=== PATIENT | female | born 1945 | race Caucasian/White ===

== ENCOUNTER 2017-08-31 17:37 | Inpatient (IN) | payer MEDICARE, OTHER ==
[~2017-08-31] VITALS: Ht 157.5 cm; Wt 49.6 kg
[2017-08-31] VITALS (7 sets, daily range): BP systolic 115–129; BP diastolic 45–60; PULSE 76–89; RESP 15–18; TEMP 97.7–97.8; O2SAT 97–100
--- NOTE | 2017-08-31 18:08 | RADRPT ---
EXAM DATE/TIME: 08/31/2017 17:58 [facility] COMPARISON: No previous studies available for comparison. INDICATIONS : Syncope. MEDICAL HISTORY : None. SURGICAL HISTORY : None. ENCOUNTER: Initial ACUITY: 1 day PAIN SCORE: Non-responsive. LOCATION: Bilateral chest FINDINGS: Portable AP view of the chest demonstrates a normal-sized cardiac silhouette. Left chest wall cardiac pacing device is present. EKG lines overlie the patient. Lungs are mildly underinflated. No pleural effusion, airspace consolidation, or pneumothorax is identified. The bones and soft tissues demonstra te no acute finding. CONCLUSION: No acute cardiopulmonary abnormality is identified. Duy Armando MD on August 31, 2017 at 18:06 Board Certified Radiologist. This report was verified electronically.
[2017-08-31 18:10] LABS: AUTOMATED NEUTROPHIL # 4.7 TH/MM3 (1.8-7.7); BASOPHIL % 0.5 % (0.0-2.0); EOSINOPHIL % 0.2 % (0.0-4.0); HEMOGLOBIN 14.1 GM/DL (11.6-15.3); LYMPHOCYTE # 2.3 TH/MM3 (1.0-4.8); MEAN CELL VOLUME 80.8 FL (80.0-100.0); MEAN CORPUSCULAR HEMOGLOBIN 26.6 PG (27.0-34.0); MEAN CORPUSCULAR HGB CONC 32.9 % (32.0-36.0); MEAN PLATELET VOLUME 7.6 FL (7.0-11.0); MONO % 5.5 % (0.0-8.0); MONOCYTE # 0.4 TH/MM3 (0-0.9); NEUT % 62.8 % (16.0-70.0); PLATELET COUNT 259 TH/MM3 (150-450); RED BLOOD COUNT 5.32 MIL/MM3 (4.00-5.30); WHITE BLOOD COUNT 7.6 TH/MM3 (4.0-11.0)
[2017-08-31 18:17] LABS: PROTHROMBIN TIME - PATIENT 10.1 SEC (9.8-11.6)
[2017-08-31 18:27] LABS: ALT (GPT) 14 U/L (10-53)
[2017-08-31] MEDS ORDERED: SINE25TA PO (18:27)
[2017-08-31] MEDS ORDERED: ALLO100T PO (18:27)
[2017-08-31] MEDS ORDERED: APIX5TAB PO (18:27)
[2017-08-31] MEDS ORDERED: ASPI81CH6 PO (18:27)
[2017-08-31] MEDS ORDERED: CALC12502 PO (18:27)
[2017-08-31] MEDS ORDERED: VITA500T4 PO (18:27)
[2017-08-31] MEDS ORDERED: MEGE40SU PO (18:27)
[2017-08-31] MEDS ORDERED: ARIC10TA9 PO (18:27)
[2017-08-31] MEDS ORDERED: POTA10TA2 PO (18:27)
[2017-08-31] MEDS ORDERED: METH2.5T PO (18:27)
[2017-08-31] MEDS ORDERED: VITA100018 PO (18:27)
[2017-08-31] MEDS ORDERED: TOPR25TA PO (18:27)
[2017-08-31] MEDS ORDERED: KAOP262S PO (18:27)
[2017-08-31] MEDS ORDERED: ATOR10TA15 PO (18:27)
[2017-08-31] MEDS ORDERED: LACT237L26 PO (18:27)
[2017-08-31] MEDS ORDERED: FLUT1INH INH (18:27)
[2017-08-31] MEDS ORDERED: FURO1TAB60 PO (18:27)
[2017-08-31] MEDS ORDERED: FOLI1TAB6 PO (18:27)
[2017-08-31] MEDS ORDERED: MILKSUS PO (18:27)
[2017-08-31] MEDS ORDERED: VENL75TA PO (18:27)
[2017-08-31] MEDS ORDERED: TYLE325T PO (18:27)
[2017-08-31] MEDS ORDERED: LANO0.12 PO (18:27)
[2017-08-31] MEDS ORDERED: SODI1TAB PO (18:27)
[2017-08-31] MEDS ORDERED: MIRA3350 PO (18:27)
[2017-08-31] MEDS ORDERED: LEVO25TA4 PO (18:27)
--- NOTE | 2017-08-31 18:27 | RADRPT ---
EXAM DATE/TIME: 08/31/2017 18:11 [facility] COMPARISON: No previous studies available for comparison. INDICATIONS : Altered mental status. RADIATION DOSE: 56.35 CTDIvol (mGy) MEDICAL HISTORY : Non-responsive. SURGICAL HISTORY : Non-responsive. ENCOUNTER: Initial ACUITY: 1 day PAIN SCALE: Non-responsive LOCATION: Bilateral head TECHNIQUE: Multiple contiguous axial images were obtained of the head. Using automated exposure control and adj ustment of the mA and/or kV according to patient size, radiation dose was kept as low as reasonably a chievable to obtain optimal diagnostic quality images. DICOM format image data is available electro nically for review and comparison. FINDINGS: CEREBRUM: Moderate diffuse cerebral atrophy. Prominent periventricular white matter hypodensities. Probable sma ll lacunar infarct in the left basal ganglia. Left The ventricles are normal for degree of atrophy. No evidence of midline shift, mass lesion, hemorrhage or acute infarction. No extra-axial fluid jordan ections are seen. POSTERIOR FOSSA: The cerebellum and brainstem are intact. The 4th ventricle is midline. The cerebellopontine angle i s unremarkable. EXTRACRANIAL: The visualized portion of the orbits is intact. SKULL: The calvaria is intact. No evidence of skull fracture. CONCLUSION: 1. Senescent changes with prominent periventricular small vessel ischemic white matter demyelination. 2. Probable old small left basal ganglia lacunar infarct. 3. No acute intracranial abnormality. Kurt Ramirez MD on August 31, 2017 at 18:24 Board Certified Radiologist. This report was verified electronically.
[2017-08-31 18:40] LABS: ALKALINE PHOSPHATASE 79 U/L (45-117); AST (GOT) 35 U/L (15-37); BICARBONATE 24.9 MEQ/L (21.0-32.0); BLOOD UREA NITROGEN 24 MG/DL (7-18); CALCIUM 8.3 MG/DL (8.5-10.1); CHLORIDE 103 MEQ/L (98-107); CREATININE 1.18 MG/DL (0.50-1.00); GLOMERULAR FILTRATION RATE 45 ML/MIN (>89); GLUCOSE,RANDOM 212 MG/DL (74-106); SODIUM (NA) 135 MEQ/L (136-145); TOTAL BILIRUBIN ADULT 0.3 MG/DL (0.2-1.0); TOTAL PROTEIN 6.3 GM/DL (6.4-8.2); TROPONIN I 0.55 NG/ML (0.02-0.05)
--- NOTE | 2017-08-31 18:51 | PD ---
HPI Chief Complaint: Neuro Symptoms/ Deficits Time Seen by Provider: 17:46 Travel History International Travel<30 days: No Contact w/Intl Traveler<30days: No Traveled to known affect area: No History of Present Illness HPI 72-year-old arrives by EMS. She was recently discharged from an outside hospital 2 days prior. Her family members and friends noted her speech is abnormal and that she is much less active than normal. At baseline she is awake alert interactive. She is evidently loud and gregarious with her friends. No asymmetry of the face has been observed or weakness in the upper extremities. She was discharged with a diagnosis of UTI. Outside hospital imaging revealed a normal head CT. Severity moderate. Modifying factor. Patient has a history of atrial fibrillation coronary artery disease gastric bypass hysterectomy and hypertension. PFSH Past Medical History Atrial Fibrillation: Yes Cardiac Catheterization: Yes Cardiovascular Problems: Yes (HTN) Diabetes: Yes (NEW ONSET ) Patient Takes Glucophage: No Diminished Hearing: No Hypertension: Yes Immunizations Current: Yes Tetanus Vaccination: Unknown Influenza Vaccination: No ?: Not Menopausal: Yes Past Surgical History Abdominal Surgery: Yes (GASTRIC BYPASS ) Appendectomy: Yes Cardiac Surgery: Yes (PACEMAKER PLACMENT ) Cholecystectomy: Yes Coronary Stent: Yes (X1) Gynecologic Surgery: Yes (HYSTERECTOMY ) Hysterectomy: Yes Social History Alcohol Use: No Tobacco Use: No Substance Use: No Allergies-Medications (Allergen,Severity, Reaction): Coded Allergies: morphine (Verified Allergy, Unknown, 08/31/17) Reported Meds & Prescriptions Reported Meds & Active Scripts Active Reported Tylenol (Acetaminophen) 325 Mg Tab 650 Mg PO Q6H PRN Milk of Magnesia Liq (Magnesium Hydroxide) 400 Mg/5 Ml Susp 30 Ml PO DAILY PRN Miralax Powder (Polyethylene Glycol 3350 Powder) 17 Gm Powd 17 Gm PO DAILY PRN Mix and dissolve one measuring cap-ful (17 grams) in water or juice. Kaopectate Liq (Bismuth Subsalicylate) 262 Mg/15 Ml Susp 30 Ml PO BID PRN Do not exceed 2 doses in 24 hours. Atorvastatin (Atorvastatin Calcium) 10 Mg Tab 10 Mg PO HS Aricept (Donepezil HCl) 10 Mg Tablet 10 Mg PO HS Aspirin Low Dose (Aspirin) 81 Mg Chew 81 Mg PO DAILY Take with dinner Eliquis (Apixaban) 5 Mg Tab 5 Mg PO BID Toprol XL (Metoprolol Succinate) 25 Mg Tab 25 Mg PO BID Hold for B/P less than 90/60 or HR less than 60 Potassium Chloride ER (Potassium Chloride) 10 Meq Tab 10 Meq PO BID Calcium (Oyster Shell) 500 Mg Calcium (1250 Mg) Tab 500 Mg PO BID Boost (Lactose-Reduced Food) 0.04 Gram-1 Kcal/Ml Liquid 1 Can PO BID Lasix (Furosemide) 40 Mg Tab 40 Mg PO BID Lanoxin (Digoxin) 125 Mcg Tablet 125 Mcg PO DAILY Hold for HR <60 & call MD after 3rd day of holding Vitamin D3 (Cholecalciferol) 1,000 Unit Tab 2,000 Units PO DAILY Effexor (Venlafaxine HCl) 75 Mg Tab 75 Mg PO DAILY Breo Ellipta Inh (Fluticasone/Vilanterol) 100-25 Mcg/Act Inh 1 Puff INH DAILY Use daily at the same time. Allopurinol 100 Mg Tab 100 Mg PO DAILY Vitamin B-12 (Cyanocobalamin) 500 Mcg Tab 1,000 Mcg PO DAILY Megestrol Liq (Megestrol Acetate) 40 Mg/Ml Susp 400 Mg PO DAILY Folic Acid 1 Mg Tablet 1 Mg PO DAILY Methotrexate 2.5 Mg Tab 12.5 Mg PO SATURDAY Sodium Chloride 1 Gram Tab 1 Gm PO DAILY Sinemet (Carbidopa-Levodopa) 25-100 Mg Tab 1 Tab PO TID Levothyroxine (Levothyroxine Sodium) 25 Mcg Tab 25 Mcg PO DAILY Review of Systems Except as stated in HPI: all other systems reviewed are Neg Physical Exam Narrative GENERAL: 72-year-old female pleasant well-nourished well-developed answers questions at the bedside Vital Signs Date Time Temp Pulse Resp B/P (MAP) Pulse Ox O2 Delivery O2 Flow Rate FiO2 18 17:45 97.8 85 15 124/60 (81) 100 218 17:45 96 Nasal Cannula 2.00 SKIN: Warm and dry. HEAD: Atraumatic. Normocephalic. EYES: Pupils equal and round. No scleral icterus. No injection or drainage. ENT: No nasal bleeding or discharge. Mucous membranes pink and moist. NECK: Trachea midline. No JVD. CARDIOVASCULAR: Regular rate and rhythm. RESPIRATORY: No accessory muscle use. Clear to auscultation. Breath sounds equal bilaterally. GASTROINTESTINAL: Abdomen soft, non-tender, nondistended. Hepatic and splenic margins not palpable. MUSCULOSKELETAL: Extremities without clubbing, cyanosis, or edema. No obvious deformities. NEUROLOGICAL: Cranial nerves III through XII are normal on my exam. The speech is comprehensible. Memory grossly preserved. PSYCHIATRIC: Appropriate mood and affect; insight and judgment normal. Data Data Last Documented VS Vital Signs Date Time Temp Pulse Resp B/P (MAP) Pulse Ox O2 Delivery O2 Flow Rate FiO2 08/31/17 18:45 80 16 119/45 (69) 98 Room Air 08/31/17 17:45 97.8 08/31/17 17:45 2.00 Orders Orders Electrocardiogram (08/31/17 17:46) Basic Metabolic Panel (Bmp) (08/31/17 17:46) Comprehensive Metabolic Panel (08/31/17 17:46) Prothrombin Time / Inr (Pt) (08/31/17 17:46) Act Partial Throm Time (Ptt) (08/31/17 17:46) Troponin I (08/31/17 17:46) Thyroid Stimulating Hormone (08/31/17 17:46) Urinalysis - C+S If Indicated (08/31/17 17:46) Chest, Single Ap (08/31/17 17:46) Ct Brain W/O Iv Contrast(Rout) (08/31/17 17:46) Blood Glucose (08/31/17 17:46) Ecg Monitoring (08/31/17 17:46) Iv Access Insert/Monitor (08/31/17 17:46) Oximetry (08/31/17 17:46) Complete Blood Count With Diff (08/31/17 17:55) Admit Order (Ed Use Only) (08/31/17 ) Folding Machine Operator / Telemetry CINDY.Q8H (08/31/17 19:10) Vital Signs (Adult) Q4H (08/31/17 19:10) Activity Bed Rest (08/31/17 19:10) Labs Laboratory Tests Test 08/31/17 17:49 08/31/17 17:50 08/31/17 18:50 Prothrombin Time 10.1 SEC Prothromb Time International Ratio 1.0 RATIO Activated Partial Thromboplast Time 25.3 SEC Blood Urea Nitrogen 24 MG/DL Creatinine 1.18 MG/DL Random Glucose 212 MG/DL Total Protein 6.3 GM/DL Albumin 3.0 GM/DL Calcium Level 8.3 MG/DL Alkaline Phosphatase 79 U/L Aspartate Amino Transf (AST/SGOT) 35 U/L Alanine Aminotransferase (ALT/SGPT) 14 U/L Total Bilirubin 0.3 MG/DL Sodium Level 135 MEQ/L Potassium Level 4.3 MEQ/L Chloride Level 103 MEQ/L Carbon Dioxide Level 24.9 MEQ/L Anion Gap 7 MEQ/L Estimat Glomerular Filtration Rate 45 ML/MIN Troponin I 0.55 NG/ML Thyroid Stimulating Hormone 3rd Gen 2.300 uIU/ML White Blood Count 7.6 TH/MM3 Red Blood Count 5.32 MIL/MM3 Hemoglobin 14.1 GM/DL Hematocrit 43.0 % Mean Corpuscular Volume 80.8 FL Mean Corpuscular Hemoglobin 26.6 PG Mean Corpuscular Hemoglobin Concent 32.9 % Red Cell Distribution Width 23.0 % Platelet Count 259 TH/MM3 Mean Platelet Volume 7.6 FL Neutrophils (%) (Auto) 62.8 % Lymphocytes (%) (Auto) 31.0 % Monocytes (%) (Auto) 5.5 % Eosinophils (%) (Auto) 0.2 % Basophils (%) (Auto) 0.5 % Neutrophils # (Auto) 4.7 TH/MM3 Lymphocytes # (Auto) 2.3 TH/MM3 Monocytes # (Auto) 0.4 TH/MM3 Eosinophils # (Auto) 0.0 TH/MM3 Basophils # (Auto) 0.0 TH/MM3 CBC Comment DIFF FINAL Differential Comment Urine Color YELLOW Urine Turbidity CLEAR Urine pH 5.5 Urine Specific [place] 1.020 Urine Protein NEG mg/dL Urine Glucose (UA) 150 mg/dL Urine Ketones NEG mg/dL Urine Occult Blood NEG Urine Nitrite NEG Urine Bilirubin NEG Urine Urobilinogen LESS THAN 2.0 MG/DL Urine Leukocyte Esterase SMALL Urine RBC 1 /hpf Urine WBC 1 /hpf Urine Bacteria RARE /hpf Urine Hyaline Casts 1 /lpf Microscopic Urinalysis Comment CATH-CULTURE IND MDM Medical Decision Making Medical Screen Exam Complete: Yes Emergency Medical Condition: Yes Medical Record Reviewed: Yes Differential Diagnosis Stroke of hemorrhagic causes, ischemic stroke, Narrative Course CBC & BMP Diagram 08/31/17 17:49 Total Protein 6.3 L, Albumin 3.0 L, Calcium Level 8.3 L, Alkaline Phosphatase 79 , Aspartate Amino Transf (AST/SGOT) 35, Alanine Aminotransferase (ALT/SGPT) 14, Total Bilirubin 0.3 08/31/17 17:50 Troponin 0.55 EKG shows a paced rhythm at a rate of 79 somewhat irregular without acute ischemic injury pattern Patient has no chest pain such that the etiology of her troponin of 0.55 is indeterminate. Patient has CHF and a BMP may further help define the nature of the elevated troponin The case was discussed with Dr Frye Diagnosis Primary Impression: Altered mental status Qualified Codes: R41.82 - Altered mental status, unspecified Additional Impression: Elevated troponin Admitting Information Admitting Physician Requests: Observation Chirag Childers MD Aug 31, 2017 18:51
[2017-08-31 19:10] LABS: BACTERIA, URINE RARE /hpf; BILIRUBIN, URINE NEG (NEG); BLOOD, URINE NEG (NEG); GLUCOSE,URINE 150 mg/dL (NEG); HYALINE CAST, URINE 1 /lpf (RARE); KETONE, URINE NEG (NEG); NITRITE,URINE NEG (NEG); PH, URINE 5.5 (5.0-8.5); URINE COLOR YELLOW (YELLW/STRAW); URINE LEUKOCYTE ESTERASE SMALL (NEG)
[2017-08-31] MEDS ORDERED: SODIUM CHLORIDE 0.9% FLUSH 10 ML FLUSH IV FLUSH PRN ×2 (19:15)
[2017-08-31] MEDS ORDERED: GLUCAGON 1 MG/ML VIAL OTHER PRN (19:15)
[2017-08-31] MEDS ORDERED: DEXTROSE 50% IN WATER 50 ML VIAL(D50) IV PUSH PRN (19:15)
[2017-08-31] MEDS ORDERED: ONDANSETRON HCL 4 MG/2 ML VIAL IVP PRN (19:15)
[2017-08-31] MEDS ORDERED: LACTULOSE SYRUP 20 GM/30 ML CUP PO PRN (19:15)
[2017-08-31] MEDS ORDERED: ENALAPRILAT 1.25 MG/ML VIAL IV PUSH PRN (19:15)
[2017-08-31] MEDS ORDERED: MAGNESIUM HYDROXIDE SUSP 30 ML CUP PO PRN (19:15)
[2017-08-31] MEDS ORDERED: BISACODYL 10 MG SUPP RECTAL PRN (19:15)
[2017-08-31] MEDS ORDERED: ACETAMINOPHEN 325 MG TAB PO PRN (19:15)
[2017-08-31] MEDS ORDERED: SENNOSIDES 8.6 MG TAB PO PRN (19:15)
--- NOTE | 2017-08-31 19:26 | HHI.HP ---
[facility] Ad[facility] Diagnosis Poss CVA, AMS, Tn 0.55 Diagnoses: (1) CVA (cerebral vascular accident) Diagnosis: Principal (2) Elevated troponin Diagnosis: Principal (3) UTI (urinary tract infection) Diagnosis: Principal (4) A-fib Diagnosis: Principal (5) Dementia Diagnosis: Principal (6) Hyperglycemia Diagnosis: Principal Travel History International Travel<30 Days: No Contact w/Intl Traveler <30 Da: No Traveled to Known Affected Are: No History of Present Illness This is a 72-year-old female with a PMH of HTN, A-fib on Eliquis, Dementia, CAD , h/o Pacemaker and Recurrent UTI who was sent to the ER from Rehab secondary to slurred speech. Pt very poor historian, unable to provide much history, only answers simple questions. Two Daughters at bedside giving report, state pt starting having difficulty w/ speech on 08/20/17 while at Rehab. Daughter states she told staff at Rehab about her symptoms and was apparently referred to GI for EGD/Colonoscopy, however procedure not done as pt still taking Eliquis. Saturday (3 days ago), Daughter noted pt to be more confused, was sent to [facility] for eval, daughter states CT Head normal but found to have UTI and has been on antibiotics since. Yesterday w/ worsening mentation, states her antibiotics switched to Macrobid. Today, Daughter states she was called from Rehab as pt w/ slurred speech and physician concerned for stroke. On arrival, BP 124/60, HR 85, O2 sat 100% on 2L NC, Afebrile. CBC essentially unremarkable. Creatinine 1.18, no previous labs for comparison. BS 212. Troponin 0.55. EKG w/ no acute ischemia. Pt w/ no complaints of chest pain. INR 1.0. UA was small LEEP and mild bacteriuria. CXR with no acute findings. CT Head probable old small left basal ganglia lacunar infarct, no acute intracranial abnormality. Review of Systems Except as stated in HPI: all other systems reviewed are Neg ROS: 14 point review of systems otherwise negative. Past Family Social History Past Medical History PMH: HTN, A-fib on Eliquis, Dementia, CAD, h/o Pacemaker and Recurrent UTI Past Surgical History PAST SURGICAL HISTORY: Gastric Bypass, Appendectomy, Pacemaker, Cholecystectomy , Cardiac Stent, Hysterectomy Allergies: Coded Allergies: morphine (Verified Allergy, Unknown, 08/31/17) Family History PAST FAMILY HISTORY: Reviewed. No h/o DM or CAD Social History PAST SOCIAL HISTORY: Negative for alcohol, tobacco or drugs. Physical Exam Vital Signs Vital Signs Date Time Temp Pulse Resp B/P (MAP) Pulse Ox O2 Delivery O2 Flow Rate FiO2 08/31/17 18:45 80 16 119/45 (69) 98 Room Air 08/31/17 17:45 97.8 85 15 124/60 (81) 100 08/31/17 17:45 96 Nasal Cannula 2.00 Physical Exam PE: GENERAL: Very pleasant thin elderly white female in no acute distress. Daughter is at bedside. Answering questions, mild slurring. HEENT: PERRLA, EOMI. No scleral icterus or conjunctival pallor. No lid lag or facial droop. Edentulous. CARDIOVASCULAR: Regular rate and rhythm. No obvious murmurs to auscultation. No chest tenderness to palpation. RESPIRATORY: No obvious rhonchi or wheezing. Clear to auscultation. Breath sounds equal bilaterally. GASTROINTESTINAL: Abdomen soft, non-tender, nondistended. BS normal. MUSCULOSKELETAL: Extremities without clubbing, cyanosis, or edema. No obvious deformities. NEUROLOGICAL: Awake, alert, oriented to person. No focal neurologic deficits. Moving both upper and lower extremities spontaneously. Laboratory Laboratory Tests Test 08/31/17 17:49 08/31/17 17:50 08/31/17 18:50 Prothrombin Time 10.1 Prothromb Time International Ratio 1.0 Activated Partial Thromboplast Time 25.3 Blood Urea Nitrogen 24 Creatinine 1.18 Random Glucose 212 Total Protein 6.3 Albumin 3.0 Calcium Level 8.3 Alkaline Phosphatase 79 Aspartate Amino Transf (AST/SGOT) 35 Alanine Aminotransferase (ALT/SGPT) 14 Total Bilirubin 0.3 Sodium Level 135 Potassium Level 4.3 Chloride Level 103 Carbon Dioxide Level 24.9 Anion Gap 7 Estimat Glomerular Filtration Rate 45 Troponin I 0.55 Thyroid Stimulating Hormone 3rd Gen 2.300 White Blood Count 7.6 Red Blood Count 5.32 Hemoglobin 14.1 Hematocrit 43.0 Mean Corpuscular Volume 80.8 Mean Corpuscular Hemoglobin 26.6 Mean Corpuscular Hemoglobin Concent 32.9 Red Cell Distribution Width 23.0 Platelet Count 259 Mean Platelet Volume 7.6 Neutrophils (%) (Auto) 62.8 Lymphocytes (%) (Auto) 31.0 Monocytes (%) (Auto) 5.5 Eosinophils (%) (Auto) 0.2 Basophils (%) (Auto) 0.5 Neutrophils # (Auto) 4.7 Lymphocytes # (Auto) 2.3 Monocytes # (Auto) 0.4 Eosinophils # (Auto) 0.0 Basophils # (Auto) 0.0 CBC Comment DIFF FINAL Differential Comment Urine Color YELLOW Urine Turbidity CLEAR Urine pH 5.5 Urine Specific [place] 1.020 Urine Protein NEG Urine Glucose (UA) 150 Urine Ketones NEG Urine Occult Blood NEG Urine Nitrite NEG Urine Bilirubin NEG Urine Urobilinogen LESS THAN 2.0 Urine Leukocyte Esterase SMALL Urine RBC 1 Urine WBC 1 Urine Bacteria RARE Urine Hyaline Casts 1 Microscopic Urinalysis Comment CATH-CULTURE IND Date/Time Source Procedure Growth Status 08/31/17 18:50 Urine Catheterized Urine Urine Culture Pending Received Result Diagram: 08/31/17 1750 08/31/17 1749 Caprini VTE Risk Assessment Caprini VTE Risk Assessment: Mod/High Risk (score >= 2) Caprini Risk Assessment Model Point Value = 1 Point Value = 2 Point Value = 3 Point Value = 5 Age 41-60 Minor surgery BMI > 25 kg/m2 Swollen legs Varicose veins or History of unexplained or recurrent spontaneous Oral contraceptives or hormone replacement Sepsis (< 1 month) Serious lung disease, including pneumonia (< 1 month) Abnormal pulmonary function Acute myocardial infarction Congestive heart failure (< 1 month) History of inflammatory bowel disease Medical patient at bed rest Age 61-74 Arthroscopic surgery Major open surgery (> 45 min) Laparoscopic surgery (> 45 min) Malignancy Confined to bed (> 72 hours) Immobilizing plaster cast Central venous access Age >= 75 History of VTE Family history of VTE Factor V Leiden Prothrombin [id number] Lupus anticoagulant Anticardiolipin antibodies Elevated serum homocysteine Heparin-induced thrombocytopenia Other congenital or acquired thrombophilia Stroke (< 1 month) Elective arthroplasty Hip, pelvis, or leg fracture Acute spinal cord injury (< 1 month) Prophylaxis Regimen Total Risk Factor Score Risk Level Prophylaxis Regimen 0-1 Low Early ambulation 2 Moderate Order ONE of the following: *Sequential Compression Device (SCD) *Heparin 5000 units SQ BID 3-4 Higher Order ONE of the following medications: *Heparin 5000 units SQ TID *Enoxaparin/Lovenox 40 mg SQ daily (WT < 150 kg, CrCl > 30 mL/min) *Enoxaparin/Lovenox 30 mg SQ daily (WT < 150 kg, CrCl > 10-29 mL/min) *Enoxaparin/Lovenox 30 mg SQ BID (WT < 150 kg, CrCl > 30 mL/min) AND/OR *Sequential Compression Device (SCD) 5 or more Highest Order ONE of the following medications: *Heparin 5000 units SQ TID (Preferred with Epidurals) *Enoxaparin/Lovenox 40 mg SQ daily (WT < 150 kg, CrCl > 30 mL/min) *Enoxaparin/Lovenox 30 mg SQ daily (WT < 150 kg, CrCl > 10-29 mL/min) *Enoxaparin/Lovenox 30 mg SQ BID (WT < 150 kg, CrCl > 30 mL/min) AND *Sequential Compression Device (SCD) Assessment and Plan Problem List: (1) CVA (cerebral vascular accident) ICD Code: I63.9 - Cerebral infarction, unspecified (2) Elevated troponin ICD Code: R74.8 - Abnormal levels of other serum enzymes Status: Acute (3) A-fib ICD Code: I48.91 - Unspecified atrial fibrillation (4) UTI (urinary tract infection) ICD Code: N39.0 - Urinary tract infection, site not specified (5) Dementia ICD Code: F03.90 - Unspecified dementia without behavioral disturbance (6) Hyperglycemia ICD Code: R73.9 - Hyperglycemia, unspecified Assessment and Plan A/P: 1. CVA: slurred speech, no weakness/facial droop, per Daughter, symptoms ongoing since 08/20/17. CT Head w/ probable old small lacunar infarct, no acute findings, images reviewed by me. Keep NPO, Speech Consult for formal swallow eval. Unable to obtain MRI due to pacemaker, check Carotid US, check Echo for possible embolic event-especially w/ h/o A-fib. Consult PT for eval/tx. Consult Neurology for further recommendations. ASA, Statin. Hold antihypertensives for now, BP meds for systolic >220. Neuro checks q4h. 2. Elevated Trop: Trop 0.55, EKG w/ no acute ischemia. No c/o chest pain. Overall pt likely poor candidate for further intervention due to advanced dementia w/ acute CVA. Check serial cardia enzymes to eval for trend. Consult Cardiology for further recommendations. ASA, Statin. Hold B-danielle to allow for permissive HTN w/ CVA. Telemetry. 3. A-fib: Chronic. On Eliquis per review of medication list from Rehab. Telemetry. Check Echo as above to eval for possible embolic event. 4. UTI: U/a w/ small LE, mild bacteriuria, has been on antibiotics as outpatient for UTI, will continue w/ IV Rocephin. IVF for hydration. 5. Hyperglycemia: BS 212, not on medications per review of home medications. Check Hgb A1c, start Sliding Scale w/ Accu-Cheks. 6. Dementia: Chronic w/ acute decompensation in mental status likely secondary to UTI and possible CVA. Resume home Sinemet and Aricept. 7. DVT Prophylaxis: Lovenox 8. Social work for d/c planning as needed. 9. Case discussed w/ ER physician at length, labs/records/imaging reviewed by me. Discussed extensively w/ family. Physician Certification 2 Midnight Certification Type: Admission for Inpatient Services Order for Inpatient Services The services are ordered in accordance with Medicare regulations or non- Medicare payer requirements, as applicable. In the case of services not specified as inpatient-only, they are appropriately provided as inpatient services in accordance with the 2-midnight benchmark. Estimated LOS (days): 2 days is the estimated time the patient will need to remain in the hospital, assuming treatment plan goals are met and no additional complications. Post-Hospital Plan: Not yet determined Tiffani Frye MD Aug 31, 2017 19:26
[2017-08-31] MEDS: cefTRIAXone INJ 1,000 MG in SODIUM CHLORIDE 0.9% INJ 100 ML IV SCH (19:46)
[2017-08-31] MEDS: SODIUM CHLOR 0.9% 1000 ML INJ 1,000 ML IV SCH (19:46)
[2017-08-31] MEDS: SODIUM CHLORIDE 0.9% FLUSH 10 ML FLUSH IV FLUSH SCH (20:57)
[2017-08-31] MEDS ORDERED: SODIUM CHLORIDE 0.9% FLUSH 10 ML FLUSH IV FLUSH SCH (21:00)
[2017-08-31] MEDS: DONEPEZIL HCL 5 MG TAB PO SCH (21:00)
[2017-08-31] MEDS: ATORVASTATIN 10 MG TAB PO SCH (21:00)
[2017-08-31] MEDS: DOCUSATE SODIUM 50 MG/SENNA 8.6 MG TAB PO SCH (21:00)
[2017-08-31] MEDS: INSULIN ASPART SUPPLEMENTAL SCALE SQ SCH (22:21)
--- NOTE | 2017-08-31 22:25 | RADRPT ---
EXAM DATE/TIME: 08/31/2017 21:55 [facility] COMPARISON: No previous studies available for comparison. INDICATIONS : Cerebrovascular accident. MEDICAL HISTORY : Hypertension. Atrial fibrillation. Diabetes. SURGICAL HISTORY : Pacemaker. Coronary artery stent. Appendectomy. Cholecystectomy. Hysterectomy. Knee surgery. Right th umb surgery. ENCOUNTER: Initial ACUITY: 1 day PAIN SCORE: 2/10 LOCATION: Bilateral neck PEAK SYSTOLIC VELOCITIES (cm/sec): ICA/CCA RATIO: Right: 1.4 Left: 1.5 ICA: Right: 98.4 Left: 82.2 CCA: Right: 68.5 Left: 56.4 ECA: Right: 81.4 Left: 96.7 VERTEBRAL: Right: 63.3 antegrade Left: 50.4 antegrade Elevated flow velocities and ICA/CCA ratios have been found to correlate with increased degrees of vessel stenosis, calculated as percentage of diameter relative to a normal segment of distal ICA/CCA FINDINGS: RIGHT CAROTID: No significant stenosis is visualized. There is mild intimal thickening in the common carotid artery with mild noncalcified plaque in the carotid bulb. The waveforms are within normal limits. LEFT CAROTID: No significant stenosis is visualized. There is mild calcified and noncalcified plaque in the caroti d bulb. The waveforms are within normal limits. VERTEBRAL ARTERIES: Antegrade flow is seen in both vertebral arteries. MISCELLANEOUS: None. CONCLUSION: 1. Very mild atherosclerotic disease bilaterally. There is no significant stenosis within either inte rnal carotid artery (less than 50% stenosis). 2. There is antegrade flow within both vertebral arteries. Duy Armando MD on August 31, 2017 at 22:21 Board Certified Radiologist. This report was verified electronically.
[2017-09-01] VITALS (17 sets, daily range): BP systolic 111–126; BP diastolic 51–76; PULSE 63–170; RESP 14–20; TEMP 97.6–98.2; O2SAT 97–99
[2017-09-01] MEDS: ASPIRIN 81 MG CHEW TAB PO SCH (07:54)
[2017-09-01] MEDS: DOCUSATE SODIUM 50 MG/SENNA 8.6 MG TAB PO SCH ×2 (07:54→20:38)
[2017-09-01] MEDS: CARBIDOPA/LEVODOPA 25 MG/100 MG TAB PO SCH ×3 (07:54→18:03)
[2017-09-01] MEDS: SODIUM CHLORIDE 0.9% FLUSH 10 ML FLUSH IV FLUSH SCH ×2 (07:56→20:39)
[2017-09-01] MEDS: DIGOXIN 0.125 MG TAB PO SCH (07:56)
[2017-09-01] MEDS: INSULIN ASPART SUPPLEMENTAL SCALE SQ SCH ×3 (07:56→17:00)
[2017-09-01] MEDS: FOLIC ACID 1 MG TAB PO SCH (07:56)
[2017-09-01] MEDS: SODIUM CHLOR 0.9% 1000 ML INJ 1,000 ML IV SCH ×2 (07:57→23:42)
[2017-09-01] MEDS ORDERED: ENOXAPARIN SODIUM 40 MG/0.4 ML SYRINGE SQ SCH (09:00)
--- NOTE | 2017-09-01 10:04 | HHI.PR ---
Subjective Remarks When asked how she is doing, patient states "I am here ". She knows her name and date of but cannot tell me the year or the month. She denies any pain at this time, denies any weakness. She denies any shortness of breath. Kettle Skimmer at bedside. Objective Vitals Vital Signs Date Time Temp Pulse Resp B/P (MAP) Pulse Ox O2 Delivery O2 Flow Rate FiO2 09/01/17 07:56 98.2 69 20 112/59 (76) 99 09/01/17 05:04 63 09/01/17 04:37 98.2 89 17 126/60 (82) 98 09/01/17 01:19 86 09/01/17 01:18 82 09/01/17 00:14 98.2 75 17 114/51 (72) 99 08/31/17 21:58 97.7 76 18 129/60 (83) 97 08/31/17 21:18 08/31/17 21:15 87 18 121/57 (78) 98 Room Air 08/31/17 21:12 98 Room Air 08/31/17 19:58 97 08/31/17 19:41 89 18 115/55 (75) 99 Room Air 08/31/17 18:45 80 16 119/45 (69) 98 Room Air 08/31/17 17:45 97.8 85 15 124/60 (81) 100 08/31/17 17:45 96 Nasal Cannula 2.00 Result Diagram: 08/31/17 1750 08/31/17 1749 Imaging Last Impressions Head CT 08/31/176 Signed Impressions: Service Date/Time: Thursday, August 31, 2017 18:11 - CONCLUSION: 1. Senescent changes with prominent periventricular small vessel ischemic white matter demyelination. 2. Probable old small left basal ganglia lacunar infarct. 3. No acute intracranial abnormality. Kurt Ramirez MD Chest X-Ray 08/31/171745 Signed Impressions: Service Date/Time: Thursday, August 31, 2017 17:58 - CONCLUSION: No acute cardiopulmonary abnormality is identified. Duy Armando MD Carotid Artery Ultrasound 08/31/17 0000 Signed Impressions: Service Date/Time: Thursday, August 31, 2017 21:55 - CONCLUSION: 1. Very mild atherosclerotic disease bilaterally. There is no significant stenosis within either internal carotid artery (less than 50%% stenosis). 2. There is antegrade flow within both vertebral arteries. Duy Armando MD Objective Remarks GENERAL: Very pleasant thin elderly white female HEENT: No lid lag or facial droop noted. Edentulous. CARDIOVASCULAR: Regular rate and rhythm. No obvious murmurs to auscultation. No chest tenderness to palpation. RESPIRATORY: No obvious rhonchi or wheezing. Clear to auscultation. Breath sounds equal bilaterally. GASTROINTESTINAL: Abdomen soft, non-tender, nondistended. BS normal. MUSCULOSKELETAL: Extremities without edema. No obvious deformities. NEUROLOGICAL: Awake, alert, oriented to person. No focal neurologic deficits. Moving both upper and lower extremities spontaneously. Speech appears normal A/P Problem List: (1) CVA (cerebral vascular accident) ICD Code: I63.9 - Cerebral infarction, unspecified (2) Elevated troponin ICD Code: R74.8 - Abnormal levels of other serum enzymes Status: Acute (3) A-fib ICD Code: I48.91 - Unspecified atrial fibrillation (4) UTI (urinary tract infection) ICD Code: N39.0 - Urinary tract infection, site not specified (5) Dementia ICD Code: F03.90 - Unspecified dementia without behavioral disturbance (6) Hyperglycemia ICD Code: R73.9 - Hyperglycemia, unspecified Assessment and Plan 1. CVA: Patient presented with slurred speech, no weakness/facial droop, per Daughter, symptoms ongoing since 08/20/17. CT Head w/ probable old small lacunar infarct, no acute findings. Keep NPO, Speech Consult for formal swallow eval. PT following patient. Unable to obtain MRI due to pacemaker,Carotid US negative for stenosis, Echo has been ordered(r/o embolic event-especially w/ h/ o A-fib). Neurology has been consulted for further recommendations. on ASA, Statin. Hold antihypertensives for now, BP meds for systolic >220. Neuro checks q4h. 2. Elevated Trop: Trop 0.55--.0.49 continue trend, EKG w/ no acute ischemia. No c/o chest pain. Cardiology has been consulted for further recommendations. on ASA, Statin. Hold B-danielle to allow for permissive HTN w/ CVA. Telemetry. 3. A-fib: Chronic. On Eliquis per review of medication list from Rehab. Telemetry. Check Echo as above to eval for possible embolic event. pt currently on lovenox for dvt proph, eliquis not restarted. awaiting clearance from neuro to resume. 4. UTI: U/a w/ small LE, mild bacteriuria, has been on antibiotics as outpatient for UTI, will continue w/ IV Rocephin. IVF for hydration. f/u urine cx. 5. Hyperglycemia: BS 212, not on medications per review of home medications. Check Hgb A1c, start Sliding Scale w/ Accu-Cheks. 6. Dementia: Chronic w/ acute decompensation in mental status likely secondary to UTI and possible CVA. on home Sinemet and Aricept. 7. DVT Prophylaxis: Lovenox Discharge Planning CM assisting for d/c planning cards and neuro consult pending. Sanaz Dallas MD Sep 01, 2017 10:04
[2017-09-01 10:49] LABS: AUTOMATED NEUTROPHIL # 3.8 TH/MM3 (1.8-7.7); BASOPHIL % 0.4 % (0.0-2.0); EOSINOPHIL % 0.2 % (0.0-4.0); HEMATOCRIT 37.1 % (35.0-46.0); HEMOGLOBIN 12.2 GM/DL (11.6-15.3); LYMPHOCYTE # 2.3 TH/MM3 (1.0-4.8); MEAN CELL VOLUME 79.3 FL (80.0-100.0); MEAN CORPUSCULAR HGB CONC 32.8 % (32.0-36.0); MEAN PLATELET VOLUME 7.5 FL (7.0-11.0); MONO % 4.4 % (0.0-8.0); MONOCYTE # 0.3 TH/MM3 (0-0.9); PLATELET COUNT 252 TH/MM3 (150-450); RED BLOOD COUNT 4.68 MIL/MM3 (4.00-5.30); RED CELL DISTRIBUTION WIDTH 23.1 % (11.6-17.2); WHITE BLOOD COUNT 6.5 TH/MM3 (4.0-11.0)
[2017-09-01 11:25] LABS: ALBUMIN 2.4 GM/DL (3.4-5.0); ALKALINE PHOSPHATASE 67 U/L (45-117); ALT (GPT) LESS THAN 6 U/L (10-53); AST (GOT) 37 U/L (15-37); BICARBONATE 24.1 MEQ/L (21.0-32.0); BLOOD UREA NITROGEN 17 MG/DL (7-18); CHLORIDE 109 MEQ/L (98-107); CHOLESTEROL 90 MG/DL (120-200); CHOLESTEROL/ HDL RATIO 3.01 RATIO; CREATININE 0.85 MG/DL (0.50-1.00); GLOMERULAR FILTRATION RATE 66 ML/MIN (>89); GLUCOSE,RANDOM 73 MG/DL (74-106); HDL CHOLESTEROL 29.9 MG/DL (40.0-60.0); LDL CHOLESTEROL 43 MG/DL (0-99); SODIUM (NA) 141 MEQ/L (136-145); TOTAL BILIRUBIN ADULT 0.5 MG/DL (0.2-1.0); TOTAL PROTEIN 5.1 GM/DL (6.4-8.2); TRIGLYCERIDES 88 MG/DL (42-150); TROPONIN I 0.49 NG/ML (0.02-0.05)
--- NOTE | 2017-09-01 11:40 | MB ---
cc: CHATO JOSHUA M.D. DATE OF CONSULTATION: 09/01/2017 REASON FOR CONSULTATION: HISTORY OF PRESENT ILLNESS: Lilibeth is a very pleasant 72 year-old lady. She came to the ER because she was "incapacitated." She was found to have an elevated troponin. She denies chest pain, shortness of breath, fever, chills, cough, GI/ bleeding, paroxysmal nocturnal dyspnea, orthopnea, syncope or dizziness. PAST MEDICAL HISTORY: As per history of present illness. Apparently she had been in the hospital two days prior to admission. Speech is abnormal. Her activity is diminished. 1. History of A-fib. 2. Cardiac catheterization. 3. Hypertension. 4. Diabetes. 5. Gastric bypass. 6. Pacemaker placement. 7. Appendectomy. 8. Cholecystectomy. 9. Hysterectomy. SOCIAL HISTORY: Denies tobacco or alcohol use. ALLERGIES: MORPHINE. MEDICATIONS PRIOR TO ADMISSION: 1. Tylenol. 2. Milk of Magnesia. 3. MiraLax Powder. 4. Kaopectate. 5. Atorvastatin 10 hs. 6. Aricept. 7. Aspirin 81 mg daily. 8. Eliquis 5 mg b.i.d. 9. Toprol XL 25 b.i.d. 10. Potassium chloride. 11. Calcium. 12. Boost. 13. Lasix 40 milligrams b.i.d. 14. Digoxin 0.125 daily. 15. Vitamin D3. 16. Effexor. 17. Breo Ellipta. 18. Allopurinol. 19. Vitamin B12. 20. Megestrol. 21. Folic acid. 22. Methotrexate 2.5 on Saturday. 23. Sinemet. 24. Levothyroxine. MEDICATIONS IN THE HOSPITAL: 1. Aspirin 81 milligrams a day. 2. Lovenox 40 subcu q24 hours. 3. Sinemet. 4. Digoxin 0.125 daily. 5. Folic acid 1 milligram daily. 6. Atorvastatin 10 milligrams hs. 7. Sliding scale insulin. 8. Aricept 10 milligrams hs. 9. Ceftriaxone IV q day. PHYSICAL EXAMINATION: VITAL SIGNS: Blood pressure 112/59, pulse 69, respiratory rate 20, temperature 98.2, sats 99% on room air. General: She is alert and oriented x3, in no acute distress. Neck: Supple. No JVD. No bruit. Cardiovascular: S1-S2. No murmurs, rubs, or gallops. Lungs: Clear to auscultation bilaterally. Abdomen: Soft, non-tender, non-distended. Positive bowel sounds. Extremities: No clubbing, cyanosis or edema. IMAGING STUDIES: Chest x-ray shows no acute cardiopulmonary abnormalities identified. Head CT, senescent changes with prominent periventricular small vessel ischemic white matter demyelinization, probable old small left basoganglia, lacunar infarct. No acute intracranial abnormality. Carotid ultrasound, very mild atherosclerotic disease bilaterally. There is no significant stenosis within either internal carotid artery, less than 50%. There is antegrade flow within both vertebral arteries. EKG shows a V paced rhythm, underlying A-fib, 1-[address]-segment depression in lead 2, 3, aVF, V4, V5, V6. LABORATORY DATA: White count is 7.6. Hemoglobin 14.1, hematocrit 43.0, platelet count 259. INR 1.0. Sodium 135, potassium 4.3, chloride 103, bicarb 24.9, BUN 24, creatinine 1.18, glucose 212. LFTs normal. Troponin 0.55, second troponin 0.49, albumin is 3.026, TSH is 2.3, INR 1.0. DIAGNOSIS 1. Non STEMI. 2. Altered mental status. 3. Hyponatremia. 4. Hypoalbuminemia. 5. Diabetes. 6. Permanent pacemaker. 7. A-fib. DISCUSSION At this point in time the patient is completely asymptomatic. I am not sure exactly why her troponin is elevated, whether this is possibly neurologically based. At this point in time we will get a neurology consult and manage her medically. Agree with aspirin 81 milligrams a day, digoxin, Lipitor. She probably at some point will need to be placed back on her beta-danielle and Eliquis. I will continue to follow. Chato Joshua MD [facility] /10:41 AM /11:28 AM
--- NOTE | 2017-09-01 13:14 | MB ---
cc: DIANA DERAS M.D. DATE OF CONSULTATION: 09/01/2017. REASON FOR CONSULTATION: Rule out stroke. HISTORY OF PRESENT ILLNESS: Ms. Muñoz is a 72-year-old woman who developed sudden onset of difficulty with her speech, mainly with slurring of her speech. She had no focal weakness or numbness. PAST MEDICAL HISTORY: The past medical history is remarkable for: 1. Atrial fibrillation. She does take Eliquis. 2. Dementia. 3. Pacemaker. 4. Recurrent urinary tract infections. 5. Hypertension. CURRENT MEDICATIONS: 1. She takes Eliquis. 2. She is currently on aspirin. 3. 100 three times a day. 4. Folic acid. 5. Lipitor. 6. Aricept 10 milligrams daily. 7. Ceftriaxone. 8. Enalapril. 9. Tylenol. 10. Zofran. 11. Senokot. 12. Lactulose. NEUROLOGIC EXAMINATION: The patient is alert at this time. She is mildly confused. Poor recent memory. Speech is fluent at this time. No aphasia. Cranial nerves are intact. Motor exam - 5/5 strength of all groups in both upper and lower extremities. Reflexes are symmetric. IMAGING STUDIES: CT of the brain shows atrophy with ischemic changes. There is an old left basal ganglia lacunar stroke which is old. No acute changes seen. Carotid ultrasound shows no significant stenosis is identified. LABORATORY DATA: The white count is 6500, hemoglobin 12.2, hematocrit 37%, platelet count 252,000. PT 10.1, INR 1, APTT 25.3. Sodium is 141, potassium 3.5, chloride, CO2 is 24, the BUN is 17, creatinine 0.85. Triglycerides 88, cholesterol 90, LDL 43. IMPRESSION: Possible TIA which appears to have resolved at the present time. RECOMMENDATIONS: I would recommend aspirin along with the Eliquis. She is unable to have an MRI of the brain due to pacemaker. Will also obtain an echocardiogram. MD LIBRA Carbajal/ARNULFO /12:48 PM /1:05 PM
[2017-09-01] MEDS ORDERED: DILTIAZEM HCL 25 MG/5 ML VIAL IV PUSH ONE (13:45)
[2017-09-01 13:47] LABS: HEMOGLOBIN A1C 5.9 % (4.3-6.0)
--- NOTE | 2017-09-01 13:50 | HHI.PR ---
Addendum to Inpatient Note Addendum Reason: Additional Documentation Additional Information I was informed by RN that pt's HR was in the 160's. STAT EKG was ordered and revealed atrial fib w RVR. I have ordered cardizem bolus stat and gtt. I have notified Dr. Flores (cards). Neuro did clear her to resume eliquis which I have done, she will be getting a dose now. Transfer to [facility]. I did evaluate the pt, she is currently asymptomatic. Eating lunch. TELE currently shows a HR in the 140's Sanaz Dallas MD Sep 01, 2017 13:50
[2017-09-01] MEDS: APIXABAN 5 MG TABLET PO SCH ×2 (14:28→20:38)
--- NOTE | 2017-09-01 14:54 | EKG ---
Date Performed: 08/31/2017 Time Performed: 17:53:18 PTAGE: 72 years EKG: Underlying atrial fibrillation Consider anterolateral ischemia and inferior ischemia and/or digoxin effect ELECTRONIC VENTRICULAR PACEMAKER -- CONTOUR ANALYSIS BASED ON INTRINSIC RHYTHM NONSPE CIFIC ST & T-WAVE ABNORMALITY ABNORMAL ECG NO PREVIOUS TRACING DOCTOR: Chato Flores Interpretating Date/Time 09/01/2017 14:52:59
[2017-09-01] MEDS: DILTIAZEM INJ 125 MG in SODIUM CHLORIDE 0.9% INJ 100 ML IV PRN (18:07)
[2017-09-01] MEDS: ATORVASTATIN 10 MG TAB PO SCH (20:38)
[2017-09-01] MEDS: DONEPEZIL HCL 5 MG TAB PO SCH (20:39)
[2017-09-01] MEDS: cefTRIAXone INJ 1,000 MG in SODIUM CHLORIDE 0.9% INJ 100 ML IV SCH (20:41)
[2017-09-02] VITALS (27 sets, daily range): BP systolic 106–129; BP diastolic 55–70; PULSE 60–92; RESP 16–18; TEMP 98.1–98.4; O2SAT 97–99
[2017-09-02] MEDS: INSULIN ASPART SUPPLEMENTAL SCALE SQ SCH ×5 (00:42→21:00)
[2017-09-02] MEDS: SODIUM CHLORIDE 0.9% FLUSH 10 ML FLUSH IV FLUSH SCH ×2 (09:00→21:08)
[2017-09-02] MEDS: CARBIDOPA/LEVODOPA 25 MG/100 MG TAB PO SCH ×3 (10:15→17:37)
[2017-09-02] MEDS: DOCUSATE SODIUM 50 MG/SENNA 8.6 MG TAB PO SCH ×2 (10:15→21:09)
[2017-09-02] MEDS: DIGOXIN 0.125 MG TAB PO SCH (10:15)
[2017-09-02] MEDS: APIXABAN 5 MG TABLET PO SCH ×2 (10:15→21:09)
[2017-09-02] MEDS: ASPIRIN 81 MG CHEW TAB PO SCH (10:16)
[2017-09-02] MEDS: FOLIC ACID 1 MG TAB PO SCH (10:16)
[2017-09-02] MEDS: METOPROLOL TARTRATE 5 MG/5 ML VIAL IV PUSH SCH ×3 (10:20→10:37)
[2017-09-02] MEDS: SODIUM CHLOR 0.9% 1000 ML INJ 1,000 ML IV SCH (14:00)
[2017-09-02] MEDS: DILTIAZEM INJ 125 MG in SODIUM CHLORIDE 0.9% INJ 100 ML IV PRN (15:23)
--- NOTE | 2017-09-02 15:55 | PD.CARD.PN ---
Subjective Subjective Remarks alert in nad Objective Medications Current Medications Medications (Trade) Dose Ordered Sig/Courtney Route Start Time Stop Time Status Last Admin (NS Flush) 2 ml BID IV FLUSH 08/31/17 21:00 09/01/17 20:39 (NS Flush) 2 ml UNSCH PRN IV FLUSH 08/31/17 19:15 Sodium Chloride 1,000 ml @ 70 mls/hr [id number] IV 08/31/17 19:06 08/31/17 19:46 (Vasotec Inj) 1.25 mg Q4H PRN IV PUSH 08/31/17 19:15 (Aspirin Chew) 81 mg DAILY PO 09/01/17 09:00 09/02/17 10:16 (Lipitor) 10 mg HS PO 08/31/17 21:00 09/01/17 20:38 (NovoLOG SUPPLEMENTAL SCALE) 1 ACHS SQ 08/31/17 21:00 (D50w (Vial) Inj) 50 ml UNSCH PRN IV PUSH 08/31/17 19:15 (Glucagon Inj) 1 mg UNSCH PRN OTHER 08/31/17 19:15 (Zofran Inj) 4 mg Q6H PRN IVP 08/31/17 19:15 (Tylenol) 650 mg Q6H PRN PO 08/31/17 19:15 (Gini-Colace) 1 tab BID PO 08/31/17 21:00 09/02/17 10:15 (Milk Of Magnesia Liq) 30 ml Q12H PRN PO 08/31/17 19:15 (Senokot) 17.2 mg Q12H PRN PO 08/31/17 19:15 (Dulcolax Supp) 10 mg DAILY PRN RECTAL 08/31/17 19:15 (Lactulose Liq) 30 ml DAILY PRN PO 08/31/17 19:15 (Sinemet 25-100 Mg) 1 tab TID PO 09/01/17 09:00 09/02/17 13:17 (Lanoxin) 0.125 mg DAILY PO 09/01/17 09:00 09/02/17 10:15 (Folate) 1 mg DAILY PO 09/01/17 09:00 09/02/17 10:16 (Aricept) 10 mg HS PO 08/31/17 21:00 09/01/17 20:39 Ceftriaxone Sodium 1000 mg/ Sodium Chloride 100 ml @ 200 mls/hr Q24H IV 08/31/17 20:00 09/01/17 20:41 Diltiazem HCl 125 mg/Sodium Chloride 125 ml @ 5 mls/hr TITRATE PRN IV 09/01/17 13:45 09/02/17 15:23 (Eliquis) 5 mg BID PO 09/01/17 13:45 09/02/17 10:15 (Lopressor) 25 mg Q6H PO 09/02/17 16:00 Vital Signs / I&O Vital Signs Date Time Temp Pulse Resp B/P (MAP) Pulse Ox O2 Delivery O2 Flow Rate FiO2 09/02/17 15:23 69 102/57 09/02/17 11:00 80 16 106/62 (77) 98 09/02/17 09:35 98 21 09/02/17 07:00 98.4 72 16 129/70 (89) 97 09/02/17 06:18 69 09/02/17 04:51 69 16 111/67 (82) 99 09/02/17 04:49 70 09/02/17 00:44 98.1 87 16 120/67 (84) 99 09/02/17 00:10 98 09/02/17 00:00 90 09/01/17 20:34 110 09/01/17 20:00 98.1 85 16 116/69 (85) 99 09/01/17 18:43 82 09/01/17 18:07 165 117/76 09/01/17 18:02 170 09/01/17 17:00 88 09/01/17 16:00 84 I/O 09/01/17 09/01/17 09/01/17 09/02/17 09/02/17 09/02/17 07:00 15:00 23:00 07:00 15:00 23:00 Intake Total 400 ml 240 ml Balance 400 ml 240 ml Intake Oral 400 ml 240 ml # Voids 2 1 # Bowel Movements 1 Physical Exam GENERAL: SKIN: Warm and dry. HEAD: Normocephalic. EYES: No scleral icterus. No injection or drainage. NECK: Supple, trachea midline. No JVD or lymphadenopathy. CARDIOVASCULAR: Regular rate and rhythm without murmurs, gallops, or rubs. RESPIRATORY: Breath sounds equal bilaterally. No accessory muscle use. GASTROINTESTINAL: Abdomen soft, non-tender, nondistended. MUSCULOSKELETAL: No cyanosis, or edema. BACK: Nontender without obvious deformity. No CVA tenderness. Assessment and Plan Problem List: (1) NSTEMI (non-ST elevated myocardial infarction) ICD Codes: I21.4 - Non-ST elevation (NSTEMI) myocardial infarction (2) Altered mental status ICD Codes: R41.82 - Altered mental status, unspecified Status: Acute (3) Elevated troponin ICD Codes: R74.8 - Abnormal levels of other serum enzymes Status: Acute (4) Dementia ICD Codes: F03.90 - Unspecified dementia without behavioral disturbance (5) A-fib ICD Codes: I48.91 - Unspecified atrial fibrillation (6) CVA (cerebral vascular accident) ICD Codes: I63.9 - Cerebral infarction, unspecified Assessment and Plan 1.) Afib - rate controlled with addition of lopressor 25 mg [id number], on eliquis , assymptomatic Problem Qualifiers (1) Altered mental status: Qualified Codes: R41.82 - Altered mental status, unspecified Chato Flores MD Sep 02, 2017 15:55
--- NOTE | 2017-09-02 17:32 | ECHRPT ---
Indication: CEREBRAL EMBOLISM CONCLUSIONS Normal left ventricular size with upper normal wall thickness. The left ventricular systolic functio n is normal with an estimated ejection fraction in the range of 60-65%. Normal wall motion. The left atrial size is slmryqcy-ap-rgeexeto dilated. The right atrial size is mildly dilated. Moderate mitral valve regurgitation. Trace aortic valve regurgitation. Aortic valve not well visualized. There is mild to moderate tricuspid regurgitation. The estimated systolic pulmonary pressure is 33 mm Hg. BP: 120 / 67 HR: Rhythm: MEASUREMENTS (Male / Female) Normal Values Technical Quality:Good 2D ECHO LV Diastolic Diameter PLAX 3.4 cm 4.2 - 5.9 / 3.9 - 5.3 cm LV Systolic Diameter PLAX 2.5 cm IVS Diastolic Thickness 1.0 cm 0.6 - 1.0 / 0.6 - 0.9 cm LVPW Diastolic Thickness 0.9 cm 0.6 - 1.0 / 0.6 - 0.9 cm LV Relative Wall Thickness 0.6 RV Internal Dim ED PLAX 2.2 cm M-MODE Aortic Root Diameter MM 3.2 cm LA Systolic Diameter MM 4.8 cm LA Ao Ratio MM 1.5 AV Cusp Separation MM 2.0 cm DOPPLER MV Peak Velocity 152.0 cm/s MV Peak Gradient 9.2 mmHg MV Mean Velocity 87.4 cm/s MV Mean Gradient 4.0 mmHg Mitral E Point Velocity 180.0 cm/s Mitral A Point Velocity 118.0 cm/s Mitral E to A Ratio 1.5 TR Peak Velocity 239.0 cm/s TR Peak Gradient 22.8 mmHg Right Atrial Pressure 10.0 mmHg Pulmonary Artery Systolic Pressu 32.8 mmHg Right Ventricular Systolic Press 32.8 mmHg FINDINGS LEFT VENTRICLE Normal left ventricular size with upper normal wall thickness. The left ventricular systolic functio n is normal with an estimated ejection fraction in the range of 60-65%. Normal wall motion. RIGHT VENTRICLE Normal right ventricular size and systolic function. LEFT ATRIUM The left atrial size is fnxoxxoh-kt-[id number] dilated. RIGHT ATRIUM The right atrial size is mildly dilated. ATRIAL SEPTUM Normal atrial septal thickness without atrial level shunting by limited color doppler interrogation. AORTA The aortic root and proximal ascending aorta are not well visualized. MITRAL VALVE Moderate mitral valve regurgitation. AORTIC VALVE Trace aortic valve regurgitation. Trileaflet aortic valve. TRICUSPID VALVE There is mild to moderate tricuspid regurgitation. The estimated systolic pulmonary pressure is 33 mm Hg. PULMONARY VALVE No pulmonary valve regurgitation or stenosis. VESSELS The inferior vena cava is normal in size. PERICARDIUM No pericardial effusion. Edwin Barrientos MD (Electronically Signed) Final Date:02 September 2017 17:31
[2017-09-02] MEDS: METOPROLOL TARTRATE 25 MG TAB PO SCH ×2 (17:37→21:08)
[2017-09-02] MEDS: cefTRIAXone INJ 1,000 MG in SODIUM CHLORIDE 0.9% INJ 100 ML IV SCH (21:08)
[2017-09-02] MEDS: ATORVASTATIN 10 MG TAB PO SCH (21:08)
[2017-09-02] MEDS: DONEPEZIL HCL 5 MG TAB PO SCH (21:08)
--- NOTE | 2017-09-02 21:59 | HHI.PR ---
Review/Management Diagnosis TIA Plan continue asa with eliquis Diagnosis/Plan: Subjective Subjective Comments No acute events reported Active Medications Current Medications Medications (Trade) Dose Ordered Sig/Courtney Route Start Time Stop Time Status Last Admin (NS Flush) 2 ml BID IV FLUSH 08/31/17 21:00 09/02/17 21:08 (NS Flush) 2 ml UNSCH PRN IV FLUSH 08/31/17 19:15 Sodium Chloride 1,000 ml @ 70 mls/hr [id number] IV 08/31/17 19:06 09/02/17 14:00 (Vasotec Inj) 1.25 mg Q4H PRN IV PUSH 08/31/17 19:15 (Aspirin Chew) 81 mg DAILY PO 09/01/17 09:00 09/02/17 10:16 (Lipitor) 10 mg HS PO 08/31/17 21:00 09/02/17 21:08 (NovoLOG SUPPLEMENTAL SCALE) 1 ACHS SQ 08/31/17 21:00 (D50w (Vial) Inj) 50 ml UNSCH PRN IV PUSH 08/31/17 19:15 (Glucagon Inj) 1 mg UNSCH PRN OTHER 08/31/17 19:15 (Zofran Inj) 4 mg Q6H PRN IVP 08/31/17 19:15 (Tylenol) 650 mg Q6H PRN PO 08/31/17 19:15 (Gini-Colace) 1 tab BID PO 08/31/17 21:00 09/02/17 21:09 (Milk Of Magnesia Liq) 30 ml Q12H PRN PO 08/31/17 19:15 (Senokot) 17.2 mg Q12H PRN PO 08/31/17 19:15 (Dulcolax Supp) 10 mg DAILY PRN RECTAL 08/31/17 19:15 (Lactulose Liq) 30 ml DAILY PRN PO 08/31/17 19:15 (Sinemet 25-100 Mg) 1 tab TID PO 09/01/17 09:00 09/02/17 17:37 (Lanoxin) 0.125 mg DAILY PO 09/01/17 09:00 09/02/17 10:15 (Folate) 1 mg DAILY PO 09/01/17 09:00 09/02/17 10:16 (Aricept) 10 mg HS PO 08/31/17 21:00 09/02/17 21:08 Ceftriaxone Sodium 1000 mg/ Sodium Chloride 100 ml @ 200 mls/hr Q24H IV 08/31/17 20:00 09/02/17 21:08 Diltiazem HCl 125 mg/Sodium Chloride 125 ml @ 5 mls/hr TITRATE PRN IV 09/01/17 13:45 09/02/17 15:23 (Eliquis) 5 mg BID PO 09/01/17 13:45 09/02/17 21:09 (Lopressor) 25 mg Q6H PO 09/02/17 16:00 09/02/17 21:08 Allergies Allergies Coded Allergies morphine (Verified Allergy, Unknown, 08/31/17) Exam I&O / VS 09/02/17 09/02/17 09/03/17 15:00 23:00 07:00 Intake Total 240 ml Balance 240 ml Intake Oral 240 ml # Voids 1 Vital Signs Date Time Temp Pulse Resp B/P (MAP) Pulse Ox O2 Delivery O2 Flow Rate FiO2 09/02/17 18:00 72 09/02/17 17:00 72 09/02/17 16:00 70 09/02/17 15:23 69 102/57 09/02/17 15:00 98.1 70 16 106/55 (72) 99 09/02/17 15:00 70 09/02/17 14:00 68 09/02/17 13:00 72 09/02/17 12:00 69 09/02/17 11:08 72 09/02/17 11:00 80 16 106/62 (77) 98 09/02/17 11:00 70 09/02/17 10:45 74 09/02/17 10:00 78 09/02/17 09:35 98 21 09/02/17 09:00 78 09/02/17 08:15 92 09/02/17 08:00 68 09/02/17 07:00 98.4 72 16 129/70 (89) 97 09/02/17 07:00 70 09/02/17 06:18 69 09/02/17 04:51 69 16 111/67 (82) 99 09/02/17 04:49 70 09/02/17 00:44 98.1 87 16 120/67 (84) 99 09/02/17 00:10 98 09/02/17 00:00 90 Objective Micro and Labs Date/Time Source Procedure Growth Status 08/31/17 18:50 Urine Catheterized Urine Urine Culture - Preliminary NO GROWTH IN 24 HOURS. Resulted Diagnostic Tests echo cardiogram---report noted Aurelio Zamorano MD PhD Sep 02, 2017 21:59
--- NOTE | 2017-09-02 22:15 | HHI.PR ---
Subjective Remarks "I am feeling fine" Patient denies complaints such as chest pain short of breath She is on Cardizem drip and Eliquis by cardiology Objective Vitals Vital Signs Date Time Temp Pulse Resp B/P (MAP) Pulse Ox O2 Delivery O2 Flow Rate FiO2 09/02/17 22:00 70 09/02/17 21:00 70 09/02/17 20:00 69 09/02/17 19:00 60 09/02/17 19:00 98.3 69 16 108/67 (81) 99 09/02/17 18:00 72 09/02/17 17:00 72 09/02/17 16:00 70 09/02/17 15:23 69 102/57 09/02/17 15:00 98.1 70 16 106/55 (72) 99 09/02/17 15:00 70 09/02/17 14:00 68 09/02/17 13:00 72 09/02/17 12:00 69 09/02/17 11:08 72 09/02/17 11:00 80 16 106/62 (77) 98 09/02/17 11:00 70 09/02/17 10:45 74 09/02/17 10:00 78 09/02/17 09:35 98 21 09/02/17 09:00 78 09/02/17 08:15 92 09/02/17 08:00 68 09/02/17 07:00 98.4 72 16 129/70 (89) 97 09/02/17 07:00 70 09/02/17 06:18 69 09/02/17 04:51 69 16 111/67 (82) 99 09/02/17 04:49 70 09/02/17 00:44 98.1 87 16 120/67 (84) 99 09/02/17 00:10 98 09/02/17 00:00 90 I/O 09/01/17 09/01/17 09/01/17 09/02/17 09/02/17 09/02/17 06:59 14:59 22:59 06:59 14:59 22:59 Intake Total 400 ml 240 ml 240 ml Balance 400 ml 240 ml 240 ml Intake Oral 400 ml 240 ml 240 ml # Voids 2 1 1 # Bowel Movements 1 Result Diagram: 09/01/1745 09/01/17944 Objective Remarks GENERAL: This is a well-nourished, well-developed patient, in no apparent distress. SKIN: No rashes, warm and dry HEAD: Atraumatic. Normocephalic. EYES: Pupils equal round and reactive. Extraocular motions intact. No scleral icterus. ENT: Nose without bleeding, or drainage, Airway patent. NECK: Trachea midline. Supple CARDIOVASCULAR: Regular rate and rhythm without murmurs, gallops, or rubs. RESPIRATORY: Fair air entry bilaterally. No wheezes, rales, or rhonchi. GASTROINTESTINAL: Abdomen soft, non-tender, nondistended. Positive bowel sounds MUSCULOSKELETAL: Extremities without clubbing, cyanosis, or edema. Pedal pulses appreciated NEUROLOGICAL: Awake and alert. Moves all extremity. Normal speech.no focal neurological deficit A/P Problem List: (1) CVA (cerebral vascular accident) ICD Code: I63.9 - Cerebral infarction, unspecified (2) Elevated troponin ICD Code: R74.8 - Abnormal levels of other serum enzymes Status: Acute (3) A-fib ICD Code: I48.91 - Unspecified atrial fibrillation (4) UTI (urinary tract infection) ICD Code: N39.0 - Urinary tract infection, site not specified (5) Dementia ICD Code: F03.90 - Unspecified dementia without behavioral disturbance (6) Hyperglycemia ICD Code: R73.9 - Hyperglycemia, unspecified Assessment and Plan 1. CVA: Patient presented with slurred speech, no weakness/facial droop, per Daughter, symptoms ongoing since 08/20/17. CT Head w/ probable old small lacunar infarct, no acute findings. Keep NPO, Speech Consult for formal swallow eval. PT following patient. Unable to obtain MRI due to pacemaker,Carotid US negative for stenosis, Echo has been ordered(r/o embolic event-especially w/ h/ o A-fib). Neurology has been consulted for further recommendations. on ASA, Statin. Hold antihypertensives for now, BP meds for systolic >220. Neuro checks q4h. 2. Elevated Trop: Trop 0.55--.0.49 continue trend, EKG w/ no acute ischemia. No c/o chest pain. Cardiology has been consulted for further recommendations. on ASA, Statin. Hold B-danielle to allow for permissive HTN w/ CVA. Telemetry. 3. A-fib: Chronic. On Eliquis per review of medication list from Rehab. Telemetry. Check Echo as above to eval for possible embolic event. pt currently on lovenox for dvt proph, eliquis not restarted. awaiting clearance from neuro to resume. 4. UTI: U/a w/ small LE, mild bacteriuria, has been on antibiotics as outpatient for UTI, will continue w/ IV Rocephin. IVF for hydration. f/u urine cx. 5. Hyperglycemia: BS 212, not on medications per review of home medications. Check Hgb A1c, start Sliding Scale w/ Accu-Cheks. 6. Dementia: Chronic w/ acute decompensation in mental status likely secondary to UTI and possible CVA. on home Sinemet and Aricept. 7. DVT Prophylaxis: Lovenox 09/02: Continue current care patient on Cardizem drip, I discussed with the nurse , I was told Dr. Flores added Lopressor and he wants her to continue on the drip. Areli Ortega MD Sep 02, 2017 22:15
--- NOTE | 2017-09-02 23:09 | EKG ---
Date Performed: 09/01/2017 Time Performed: 13:28:32 PTAGE: 72 years EKG: ATRIAL FIBRILLATION WITH RAPID VENTRICULAR RESPONSE WITH ABERRANT CONDUCTION OR VENTRICULAR PREMATURE COMPLEXES NONSPECIFIC ST & T-WAVE ABNORMALITY ABNORMAL ECG PREVIOUS TRACING : 08/31/2017 17.53 DOCTOR: Ruben Bruce Interpretating Date/Time 09/02/2017 22:58:59
[2017-09-03] VITALS (35 sets, daily range): BP systolic 93–126; BP diastolic 53–67; PULSE 60–84; RESP 16–18; TEMP 97.1–98.5; O2SAT 98–99
[2017-09-03] MEDS: METOPROLOL TARTRATE 25 MG TAB PO SCH ×4 (05:01→20:58)
[2017-09-03] MEDS: SODIUM CHLOR 0.9% 1000 ML INJ 1,000 ML IV SCH ×2 (06:59→20:59)
[2017-09-03] MEDS: INSULIN ASPART SUPPLEMENTAL SCALE SQ SCH ×4 (08:00→20:59)
[2017-09-03] MEDS: APIXABAN 5 MG TABLET PO SCH ×2 (08:36→20:58)
[2017-09-03] MEDS: ASPIRIN 81 MG CHEW TAB PO SCH (08:37)
[2017-09-03] MEDS: FOLIC ACID 1 MG TAB PO SCH (08:37)
[2017-09-03] MEDS: DIGOXIN 0.125 MG TAB PO SCH (08:37)
[2017-09-03] MEDS: CARBIDOPA/LEVODOPA 25 MG/100 MG TAB PO SCH ×3 (08:37→17:27)
[2017-09-03] MEDS: DOCUSATE SODIUM 50 MG/SENNA 8.6 MG TAB PO SCH ×2 (08:38→20:59)
[2017-09-03] MEDS: SODIUM CHLORIDE 0.9% FLUSH 10 ML FLUSH IV FLUSH SCH ×2 (08:39→20:58)
[2017-09-03] MEDS: DILTIAZEM HCL 30 MG TAB PO SCH ×2 (13:17→17:28)
--- NOTE | 2017-09-03 14:50 | PD.CARD.PN ---
Subjective Subjective Remarks alert in nad Objective Medications Current Medications Medications (Trade) Dose Ordered Sig/Courtney Route Start Time Stop Time Status Last Admin (NS Flush) 2 ml BID IV FLUSH 08/31/17 21:00 09/02/17 21:08 (NS Flush) 2 ml UNSCH PRN IV FLUSH 08/31/17 19:15 Sodium Chloride 1,000 ml @ 70 mls/hr [id number] IV 08/31/17 19:06 09/03/17 06:59 (Vasotec Inj) 1.25 mg Q4H PRN IV PUSH 08/31/17 19:15 (Aspirin Chew) 81 mg DAILY PO 09/01/17 09:00 09/03/17 08:37 (Lipitor) 10 mg HS PO 08/31/17 21:00 09/02/17 21:08 (NovoLOG SUPPLEMENTAL SCALE) 1 ACHS SQ 08/31/17 21:00 (D50w (Vial) Inj) 50 ml UNSCH PRN IV PUSH 08/31/17 19:15 (Glucagon Inj) 1 mg UNSCH PRN OTHER 08/31/17 19:15 (Zofran Inj) 4 mg Q6H PRN IVP 08/31/17 19:15 (Tylenol) 650 mg Q6H PRN PO 08/31/17 19:15 (Gini-Colace) 1 tab BID PO 08/31/17 21:00 09/03/17 08:38 (Milk Of Magnesia Liq) 30 ml Q12H PRN PO 08/31/17 19:15 (Senokot) 17.2 mg Q12H PRN PO 08/31/17 19:15 (Dulcolax Supp) 10 mg DAILY PRN RECTAL 08/31/17 19:15 (Lactulose Liq) 30 ml DAILY PRN PO 08/31/17 19:15 (Sinemet 25-100 Mg) 1 tab TID PO 09/01/17 09:00 09/03/17 13:15 (Lanoxin) 0.125 mg DAILY PO 09/01/17 09:00 09/03/17 08:37 (Folate) 1 mg DAILY PO 09/01/17 09:00 09/03/17 08:37 (Aricept) 10 mg HS PO 08/31/17 21:00 09/02/17 21:08 Ceftriaxone Sodium 1000 mg/ Sodium Chloride 100 ml @ 200 mls/hr Q24H IV 08/31/17 20:00 09/02/17 21:08 Diltiazem HCl 125 mg/Sodium Chloride 125 ml @ 5 mls/hr TITRATE PRN IV 09/01/17 13:45 09/02/17 15:23 (Eliquis) 5 mg BID PO 09/01/17 13:45 09/03/17 08:36 (Lopressor) 25 mg Q6H PO 09/02/17 16:00 09/03/17 10:11 (Cardizem) 30 mg Q6HR PO 09/03/17 13:00 09/03/17 13:17 Vital Signs / I&O Vital Signs Date Time Temp Pulse Resp B/P (MAP) Pulse Ox O2 Delivery O2 Flow Rate FiO2 09/03/17 12:47 69 09/03/17 12:25 97.9 69 16 102/62 (75) 99 09/03/17 11:51 74 09/03/17 11:31 99 09/03/17 10:24 69 09/03/17 10:15 69 106/59 (75) 09/03/17 09:24 69 09/03/17 08:36 84 09/03/17 07:20 69 09/03/17 07:15 98.0 69 17 111/67 (82) 99 09/03/17 06:00 69 09/03/17 05:00 66 09/03/17 04:00 69 09/03/17 03:00 98.5 69 18 122/58 (79) 99 09/03/17 03:00 69 09/03/17 02:00 69 09/03/17 01:00 69 09/03/17 00:00 70 09/02/17 23:00 69 09/02/17 23:00 98.1 69 18 111/64 (80) 99 09/02/17 22:00 70 09/02/17 21:00 70 09/02/17 20:00 69 09/02/17 19:00 60 09/02/17 19:00 98.3 69 16 108/67 (81) 99 09/02/17 18:00 72 09/02/17 17:00 72 09/02/17 16:00 70 09/02/17 15:23 69 102/57 09/02/17 15:00 98.1 70 16 106/55 (72) 99 09/02/17 15:00 70 I/O 09/02/17 09/02/17 09/02/17 09/03/17 09/03/17 09/03/17 07:00 15:00 23:00 07:00 15:00 23:00 Intake Total 240 ml 340 ml 1240 ml Balance 240 ml 340 ml 1240 ml Intake Oral 240 ml 240 ml 240 ml IV Total 100 ml 1000 ml # Voids 1 1 2 1 # Bowel Movements 1 Physical Exam GENERAL: SKIN: Warm and dry. HEAD: Normocephalic. EYES: No scleral icterus. No injection or drainage. NECK: Supple, trachea midline. No JVD or lymphadenopathy. CARDIOVASCULAR: Regular rate and rhythm without murmurs, gallops, or rubs. RESPIRATORY: Breath sounds equal bilaterally. No accessory muscle use. GASTROINTESTINAL: Abdomen soft, non-tender, nondistended. MUSCULOSKELETAL: No cyanosis, or edema. BACK: Nontender without obvious deformity. No CVA tenderness. Assessment and Plan Problem List: (1) NSTEMI (non-ST elevated myocardial infarction) ICD Codes: I21.4 - Non-ST elevation (NSTEMI) myocardial infarction (2) Altered mental status ICD Codes: R41.82 - Altered mental status, unspecified Status: Acute (3) Elevated troponin ICD Codes: R74.8 - Abnormal levels of other serum enzymes Status: Acute (4) Dementia ICD Codes: F03.90 - Unspecified dementia without behavioral disturbance (5) A-fib ICD Codes: I48.91 - Unspecified atrial fibrillation (6) CVA (cerebral vascular accident) ICD Codes: I63.9 - Cerebral infarction, unspecified Assessment and Plan 1.) Afib/tia - rate controlled with addition of lopressor 25 mg [id number], on eliquis, aspirin, assymptomatic, ok to dc from cv standpoint on current meds, f/ u with me in office next day, d/w patient and nurse Problem Qualifiers (1) Altered mental status: Qualified Codes: R41.82 - Altered mental status, unspecified Chato Flores MD Sep 03, 2017 14:50
[2017-09-03] MEDS: cefTRIAXone INJ 1,000 MG in SODIUM CHLORIDE 0.9% INJ 100 ML IV SCH (20:57)
[2017-09-03] MEDS: DONEPEZIL HCL 5 MG TAB PO SCH (20:58)
[2017-09-03] MEDS: ATORVASTATIN 10 MG TAB PO SCH (20:58)
--- NOTE | 2017-09-03 21:57 | HHI.PR ---
Subjective Remarks Resting comfortably in bed No event overnight Denied chest and or short of breath No fever or chills Objective Vitals Vital Signs Date Time Temp Pulse Resp B/P (MAP) Pulse Ox O2 Delivery O2 Flow Rate FiO2 09/03/17 18:00 80 09/03/17 17:30 98 21 09/03/17 17:00 70 09/03/17 16:00 70 09/03/17 15:00 68 09/03/17 15:00 97.8 68 16 126/60 (82) 98 09/03/17 14:00 68 09/03/17 13:00 68 09/03/17 12:47 69 09/03/17 12:25 97.9 69 16 102/62 (75) 99 09/03/17 12:00 68 09/03/17 11:51 74 09/03/17 11:31 99 09/03/17 11:00 60 09/03/17 10:24 69 09/03/17 10:15 69 106/59 (75) 09/03/17 10:00 72 09/03/17 09:24 69 09/03/17 09:00 70 09/03/17 08:36 84 09/03/17 08:00 70 09/03/17 07:20 69 09/03/17 07:15 98.0 69 17 111/67 (82) 99 09/03/17 07:00 69 09/03/17 06:00 69 09/03/17 05:00 66 09/03/17 04:00 69 09/03/17 03:00 98.5 69 18 122/58 (79) 99 09/03/17 03:00 69 09/03/17 02:00 69 09/03/17 01:00 69 09/03/17 00:00 70 09/02/17 23:00 69 09/02/17 23:00 98.1 69 18 111/64 (80) 99 09/02/17 22:00 70 I/O 09/02/17 09/02/17 09/02/17 09/03/17 09/03/17 09/03/17 07:00 15:00 23:00 07:00 15:00 23:00 Intake Total 240 ml 340 ml 1240 ml 760 ml Balance 240 ml 340 ml 1240 ml 760 ml Intake Oral 240 ml 240 ml 240 ml 720 ml IV Total 100 ml 1000 ml 40 ml # Voids 1 1 2 1 8 # Bowel Movements 1 1 Result Diagram: 09/01/17 0945 09/01/17 0945 Objective Remarks GENERAL: This is a well-nourished, well-developed patient, in no apparent distress. SKIN: No rashes, warm and dry HEAD: Atraumatic. Normocephalic. EYES: Pupils equal round and reactive. Extraocular motions intact. No scleral icterus. ENT: Nose without bleeding, or drainage, Airway patent. NECK: Trachea midline. Supple CARDIOVASCULAR: Regular rate and rhythm without murmurs, gallops, or rubs. RESPIRATORY: Fair air entry bilaterally. No wheezes, rales, or rhonchi. GASTROINTESTINAL: Abdomen soft, non-tender, nondistended. Positive bowel sounds MUSCULOSKELETAL: Extremities without clubbing, cyanosis, or edema. Pedal pulses appreciated NEUROLOGICAL: Awake and alert. Moves all extremity. Normal speech.no focal neurological deficit A/P Problem List: (1) CVA (cerebral vascular accident) ICD Code: I63.9 - Cerebral infarction, unspecified (2) Elevated troponin ICD Code: R74.8 - Abnormal levels of other serum enzymes Status: Acute (3) A-fib ICD Code: I48.91 - Unspecified atrial fibrillation (4) UTI (urinary tract infection) ICD Code: N39.0 - Urinary tract infection, site not specified (5) Dementia ICD Code: F03.90 - Unspecified dementia without behavioral disturbance (6) Hyperglycemia ICD Code: R73.9 - Hyperglycemia, unspecified Assessment and Plan 09/03: Switch Cardizem drip to p.o. and monitor continue on the rest of the medication, mostly discharge in a.m. if stable AP: 1. CVA: Patient presented with slurred speech, no weakness/facial droop, per Daughter, symptoms ongoing since 08/20/17. CT Head w/ probable old small lacunar infarct, no acute findings. Keep NPO, Speech Consult for formal swallow eval. PT following patient. Unable to obtain MRI due to pacemaker,Carotid US negative for stenosis, Echo has been ordered(r/o embolic event-especially w/ h/ o A-fib). Neurology has been consulted for further recommendations. on ASA, Statin. Hold antihypertensives for now, BP meds for systolic >220. Neuro checks q4h. 2. Elevated Trop: Trop 0.55--.0.49 continue trend, EKG w/ no acute ischemia. No c/o chest pain. Cardiology has been consulted for further recommendations. on ASA, Statin. Hold B-danielle to allow for permissive HTN w/ CVA. Telemetry. 3. A-fib: Chronic. On Eliquis per review of medication list from Rehab. Telemetry. Check Echo as above to eval for possible embolic event. pt currently on lovenox for dvt proph, eliquis not restarted. awaiting clearance from neuro to resume. 4. UTI: U/a w/ small LE, mild bacteriuria, has been on antibiotics as outpatient for UTI, will continue w/ IV Rocephin. IVF for hydration. f/u urine cx. 5. Hyperglycemia: BS 212, not on medications per review of home medications. Check Hgb A1c, start Sliding Scale w/ Accu-Cheks. 6. Dementia: Chronic w/ acute decompensation in mental status likely secondary to UTI and possible CVA. on home Sinemet and Aricept. 7. DVT Prophylaxis: Lovenox Discharge Planning In a.m. to rehab if stable Areli Ortega MD Sep 03, 2017 21:57
[2017-09-04] VITALS (22 sets, daily range): BP systolic 115–135; BP diastolic 72–91; PULSE 68–88; RESP 15–18; TEMP 97.4–97.8; O2SAT 98
[2017-09-04] MEDS: METOPROLOL TARTRATE 25 MG TAB PO SCH ×2 (03:40→09:48)
[2017-09-04] MEDS: DILTIAZEM HCL 30 MG TAB PO SCH ×2 (05:46)
[2017-09-04] MEDS: INSULIN ASPART SUPPLEMENTAL SCALE SQ SCH ×2 (08:43→12:00)
[2017-09-04] MEDS: SODIUM CHLORIDE 0.9% FLUSH 10 ML FLUSH IV FLUSH SCH (09:00)
[2017-09-04] MEDS: SODIUM CHLOR 0.9% 1000 ML INJ 1,000 ML IV SCH (09:48)
[2017-09-04] MEDS: CARBIDOPA/LEVODOPA 25 MG/100 MG TAB PO SCH ×2 (09:49→12:21)
[2017-09-04] MEDS: FOLIC ACID 1 MG TAB PO SCH (09:49)
[2017-09-04] MEDS: DOCUSATE SODIUM 50 MG/SENNA 8.6 MG TAB PO SCH (09:49)
[2017-09-04] MEDS: DIGOXIN 0.125 MG TAB PO SCH (09:49)
[2017-09-04] MEDS: ASPIRIN 81 MG CHEW TAB PO SCH (09:49)
[2017-09-04] MEDS: APIXABAN 5 MG TABLET PO SCH (09:49)
[2017-09-04] MEDS ORDERED: FURO1TAB60 PO (10:50)
[2017-09-04] MEDS ORDERED: CARD120C4 PO (10:50)
[2017-09-04] MEDS ORDERED: DILTIAZEM-CD 120 MG CAP ER PO ONE (11:00)
--- NOTE | 2017-09-04 11:17 | HHI.DS ---
Discharge Summary Admission Date Aug 31, 2017 at 19:11 Discharge Date: Sep 04, 2017 Admitting Diagnosis Poss CVA, AMS, Tn 0.55 (1) Elevated troponin ICD Code: R74.8 - Abnormal levels of other serum enzymes Diagnosis: Principal Status: Acute (2) A-fib ICD Code: I48.91 - Unspecified atrial fibrillation Diagnosis: Principal (3) UTI (urinary tract infection) ICD Code: N39.0 - Urinary tract infection, site not specified Diagnosis: Principal (4) Dementia ICD Code: F03.90 - Unspecified dementia without behavioral disturbance Diagnosis: Principal (5) Hyperglycemia ICD Code: R73.9 - Hyperglycemia, unspecified Diagnosis: Secondary Procedures none Brief History - From Admission This is a 72-year-old female with a PMH of HTN, A-fib on Eliquis, Dementia, CAD , h/o Pacemaker and Recurrent UTI who was sent to the ER from Rehab secondary to slurred speech. Pt very poor historian, unable to provide much history, only answers simple questions. Two Daughters at bedside giving report, state pt starting having difficulty w/ speech on 08/20/17 while at Rehab. Daughter states she told staff at Rehab about her symptoms and was apparently referred to GI for EGD/Colonoscopy, however procedure not done as pt still taking Eliquis. Saturday (3 days ago), Daughter noted pt to be more confused, was sent to [facility] for eval, daughter states CT Head normal but found to have UTI and has been on antibiotics since. Yesterday w/ worsening mentation, states her antibiotics switched to Macrobid. Today, Daughter states she was called from Rehab as pt w/ slurred speech and physician concerned for stroke. On arrival, BP 124/60, HR 85, O2 sat 100% on 2L NC, Afebrile. CBC essentially unremarkable. Creatinine 1.18, no previous labs for comparison. BS 212. Troponin 0.55. EKG w/ no acute ischemia. Pt w/ no complaints of chest pain. INR 1.0. UA was small LEEP and mild bacteriuria. CXR with no acute findings. CT Head probable old small left basal ganglia lacunar infarct, no acute intracranial abnormality. CBC/BMP: 09/01/17 0945 09/01/17 0945 PE at Discharge GENERAL: This is a well-nourished, well-developed patient, in no apparent distress. SKIN: No rashes, warm and dry HEAD: Atraumatic. Normocephalic. EYES: Pupils equal round and reactive. Extraocular motions intact. No scleral icterus. ENT: Nose without bleeding, or drainage, Airway patent. NECK: Trachea midline. Supple CARDIOVASCULAR: Regular rate and rhythm without murmurs, gallops, or rubs. RESPIRATORY: Fair air entry bilaterally. No wheezes, rales, or rhonchi. GASTROINTESTINAL: Abdomen soft, non-tender, nondistended. Positive bowel sounds MUSCULOSKELETAL: Extremities without clubbing, cyanosis, or edema. Pedal pulses appreciated NEUROLOGICAL: Awake and alert. Moves all extremity. Normal speech.no focal neurological deficit Hospital Course Mrs. Muñoz is a 72-year-old female. She was admitted secondary to slurred speech. Workup was negative for CVA. She was found to have a urinary tract infection and also had A. fib RVR. With rate control and improvement in her blood pressures she has returned to baseline. Urinary tract infection is being treated. She has been transitioned from IV Cardizem to by mouth Cardizem in the last 24 hours and has stability of her rate on by mouth treatment. At this point she is medically stable for discharge to long-term facility. 3 more days of Bactrim with probiotics is provided for urinary tract infection. She is discharged on long-acting Cardizem as a new treatment. Pt Condition on Discharge: Stable Discharge Disposition: Discharge to SNF Discharge Time: > 30 minutes Discharge Instructions DIET: Follow Instructions for: Heart Healthy Diet Speech Therapy-Diet Recommends: Mechanical Soft, Other, Chopped Meat w/Gravy Activities you can perform: See Additionl Instruction Other Activity Instructions: Activity with therapist(s) Follow up Referrals: PCP Follow-up - 2 Weeks New Medications: Diltiazem CD 24 HR (Cardizem CD 24 HR) 120 Mg Caper 120 MG PO DAILY for Heart Rate Control, #30 CAP 0 Refills Lactobacillus Acidophilus (Lactobacillus Acidophilus) 1 Pkt 1 PKT PO TID for Nutritional Supplement, #12 PKT 0 Refills Sulfamethoxazole-Trimethoprim (Bactrim DS) 800-160 Mg Tab 1 TAB PO BID for Infection, #6 TAB 0 Refills Changed Medications: Furosemide (Lasix) 40 Mg Tab 40 MG PO DAILY for Fluid Retention, #30 TAB 0 Refills (Changed from: BID; 60) Continued Medications: Acetaminophen (Tylenol) 325 Mg Tab 650 MG PO Q6H PRN for MILD PAIN/FEVER >100, TAB 0 Refills Allopurinol (Allopurinol) 100 Mg Tab 100 MG PO DAILY for Gout, #30 TAB 0 Refills Apixaban (Eliquis) 5 Mg Tab 5 MG PO BID for Blood Clot Prevention, #60 TAB 0 Refills Aspirin (Aspirin Low Dose) 81 Mg Chew 81 MG PO DAILY for CAD, TAB 0 Refills Take with dinner Atorvastatin (Atorvastatin) 10 Mg Tab 10 MG PO HS for Cholesterol Management, #30 TAB 0 Refills Bismuth Subsalicylate Liq (Kaopectate Liq) 262 Mg/15 Ml Susp 30 ML PO BID PRN for AFTER EACH LOOSE STOOL, #1 BOTTLE 0 Refills Do not exceed 2 doses in 24 hours. Carbidopa-Levodopa (Sinemet) 25-100 Mg Tab 1 TAB PO TID for Parkinson Disease Mgmt, #90 TAB 0 Refills Cholecalciferol (Vitamin D3) 1,000 Unit Tab 2000 UNITS PO DAILY for Nutritional Supplement, #1 BOTTLE 0 Refills Cyanocobalamin (Vitamin B-12) 500 Mcg Tab 1000 MCG PO DAILY for Nutritional Supplement, #1 BOTTLE 0 Refills Digoxin (Lanoxin) 125 Mcg Tablet 125 MCG PO DAILY for A-FIB Hold for HR <60 & call MD after 3rd day of holding Donepezil HCl (Aricept) 10 Mg Tablet 10 MG PO HS for Dementia Fluticasone-Vilanterol Inh (Breo Ellipta Inh) 100-25 Mcg/Act Inh 1 PUFF INH DAILY for COPD, #1 INHALER 0 Refills Use daily at the same time. Folic Acid (Folic Acid) 1 Mg Tablet 1 MG PO DAILY for Nutritional Supplement Lactose-Reduced Food (Boost) 0.04 Gram-1 Kcal/Ml Liquid 1 CAN PO BID for WT LOSS Levothyroxine (Levothyroxine) 25 Mcg Tab 25 MCG PO DAILY for Thyroid, #30 TAB 0 Refills Magnesium Hydroxide Liq (Milk of Magnesia Liq) 400 Mg/5 Ml Susp 30 ML PO DAILY PRN for CONSTIPATION, #1 BOTTLE 0 Refills Megestrol Liq (Megestrol Liq) 40 Mg/Ml Susp 400 MG PO DAILY for Appetite Stimulant, #240 ML 0 Refills Methotrexate (Methotrexate) 2.5 Mg Tab 12.5 MG PO SATURDAY for Rheumatoid Arthritis, TAB 0 Refills Metoprolol Succinate ER 24 HR (Toprol XL) 25 Mg Tab 25 MG PO BID for HTN, #30 TAB 0 Refills Hold for B/P less than 90/60 or HR less than 60 Oyster Shell (Calcium) 500 Mg Calcium (1250 Mg) Tab 500 MG PO BID for Nutritional Supplement Polyethylene Glycol 3350 Powder (Miralax Powder) 17 Gm Powd 17 GM PO DAILY PRN for CONSTIPATION, #1 CAN 0 Refills Mix and dissolve one measuring cap-ful (17 grams) in water or juice. Potassium Chloride ER (Potassium Chloride ER) 10 Meq Tab 10 MEQ PO BID for Electrolyte Replacement, #60 TAB 0 Refills Sodium Chloride (Sodium Chloride) 1 Gram Tab 1 GM PO DAILY for Nutritional Supplement, TAB 0 Refills Venlafaxine (Effexor) 75 Mg Tab 75 MG PO DAILY for Depression Control, #30 TAB 0 Refills Chirag James MD Sep 04, 2017 11:17
[2017-09-04] MEDS ORDERED: BACT800T5 PO (11:18)
[2017-09-04] MEDS ORDERED: LACTPOW68 PO (11:19)
--- NOTE | 2017-09-04 13:55 | PD.CARD.PN ---
Subjective Subjective Remarks alert in nad Objective Medications Current Medications Medications (Trade) Dose Ordered Sig/Courtney Route Start Time Stop Time Status Last Admin (NS Flush) 2 ml BID IV FLUSH 08/31/17 21:00 09/03/17 20:58 (NS Flush) 2 ml UNSCH PRN IV FLUSH 08/31/17 19:15 Sodium Chloride 1,000 ml @ 70 mls/hr [id number] IV 08/31/17 19:06 09/04/17 09:48 (Vasotec Inj) 1.25 mg Q4H PRN IV PUSH 08/31/17 19:15 (Aspirin Chew) 81 mg DAILY PO 09/01/17 09:00 09/04/17 09:49 (Lipitor) 10 mg HS PO 08/31/17 21:00 09/03/17 20:58 (NovoLOG SUPPLEMENTAL SCALE) 1 ACHS SQ 08/31/17 21:00 (D50w (Vial) Inj) 50 ml UNSCH PRN IV PUSH 08/31/17 19:15 (Glucagon Inj) 1 mg UNSCH PRN OTHER 08/31/17 19:15 (Zofran Inj) 4 mg Q6H PRN IVP 08/31/17 19:15 (Tylenol) 650 mg Q6H PRN PO 08/31/17 19:15 (Gini-Colace) 1 tab BID PO 08/31/17 21:00 09/03/17 20:59 (Milk Of Magnesia Liq) 30 ml Q12H PRN PO 08/31/17 19:15 (Senokot) 17.2 mg Q12H PRN PO 08/31/17 19:15 (Dulcolax Supp) 10 mg DAILY PRN RECTAL 08/31/17 19:15 (Lactulose Liq) 30 ml DAILY PRN PO 08/31/17 19:15 (Sinemet 25-100 Mg) 1 tab TID PO 09/01/17 09:00 09/04/17 12:21 (Lanoxin) 0.125 mg DAILY PO 09/01/17 09:00 09/04/17 09:49 (Folate) 1 mg DAILY PO 09/01/17 09:00 09/04/17 09:49 (Aricept) 10 mg HS PO 08/31/17 21:00 09/03/17 20:58 Ceftriaxone Sodium 1000 mg/ Sodium Chloride 100 ml @ 200 mls/hr Q24H IV 08/31/17 20:00 09/03/17 20:57 Diltiazem HCl 125 mg/Sodium Chloride 125 ml @ 5 mls/hr TITRATE PRN IV 09/01/17 13:45 09/02/17 15:23 (Eliquis) 5 mg BID PO 09/01/17 13:45 09/04/17 09:49 (Lopressor) 25 mg Q6H PO 09/02/17 16:00 09/04/17 09:48 Vital Signs / I&O Vital Signs Date Time Temp Pulse Resp B/P (MAP) Pulse Ox O2 Delivery O2 Flow Rate FiO2 09/04/17 13:00 88 09/04/17 12:42 80 09/04/17 12:08 97.4 68 16 124/83 (97) 98 09/04/17 12:00 72 09/04/17 11:54 79 09/04/17 11:00 70 09/04/17 10:31 85 09/04/17 10:00 82 09/04/17 09:12 69 09/04/17 09:00 70 09/04/17 08:10 72 09/04/17 08:00 70 09/04/17 07:41 73 09/04/17 07:41 97.8 69 15 115/72 (86) 98 09/04/17 07:00 69 09/04/17 06:00 70 09/04/17 05:00 74 09/04/17 04:00 70 09/04/17 03:00 97.4 72 18 135/91 (106) 98 09/04/17 03:00 72 09/04/17 02:00 70 09/04/17 01:00 69 09/04/17 00:00 72 09/03/17 23:00 69 09/03/17 23:00 97.2 69 16 104/63 (77) 99 09/03/17 22:00 73 09/03/17 21:00 71 09/03/17 20:00 69 09/03/17 19:00 97.1 69 18 93/53 (66) 98 09/03/17 19:00 69 09/03/17 18:00 80 09/03/17 17:30 98 21 09/03/17 17:00 70 09/03/17 16:00 70 09/03/17 15:00 68 09/03/17 15:00 97.8 68 16 126/60 (82) 98 09/03/17 14:00 68 I/O 09/03/17 09/03/17 09/03/17 09/04/17 09/04/17 09/04/17 07:00 15:00 23:00 07:00 15:00 23:00 Intake Total 1240 ml 1860 ml 420 ml Balance 1240 ml 1860 ml 420 ml Intake Oral 240 ml 720 ml 420 ml IV Total 1000 ml 1140 ml # Voids 2 1 9 3 1 # Bowel Movements 2 1 Physical Exam GENERAL: SKIN: Warm and dry. HEAD: Normocephalic. EYES: No scleral icterus. No injection or drainage. NECK: Supple, trachea midline. No JVD or lymphadenopathy. CARDIOVASCULAR: Regular rate and rhythm without murmurs, gallops, or rubs. RESPIRATORY: Breath sounds equal bilaterally. No accessory muscle use. GASTROINTESTINAL: Abdomen soft, non-tender, nondistended. MUSCULOSKELETAL: No cyanosis, or edema. BACK: Nontender without obvious deformity. No CVA tenderness. Assessment and Plan Problem List: (1) NSTEMI (non-ST elevated myocardial infarction) ICD Codes: I21.4 - Non-ST elevation (NSTEMI) myocardial infarction (2) Altered mental status ICD Codes: R41.82 - Altered mental status, unspecified Status: Acute (3) Elevated troponin ICD Codes: R74.8 - Abnormal levels of other serum enzymes Status: Acute (4) Dementia ICD Codes: F03.90 - Unspecified dementia without behavioral disturbance (5) A-fib ICD Codes: I48.91 - Unspecified atrial fibrillation (6) CVA (cerebral vascular accident) ICD Codes: I63.9 - Cerebral infarction, unspecified Assessment and Plan 1.) Afib/tia - rate controlled with addition of lopressor 25 mg q1woftc, on eliquis, aspirin, assymptomatic, ok to dc from cv standpoint on current meds, f/ u with me in office next day, d/w patient and nurse Problem Qualifiers (1) Altered mental status: Qualified Codes: R41.82 - Altered mental status, unspecified Chato Flores MD Sep 04, 2017 13:55
== END 2017-09-04 15:55 | DRG 69 ==
LOC: EDBD → NEPC 17:37 → NEDA 19:11 → MERGE 19:11 → N05B 21:30 → HCIS 09-01 14:53
PROVIDERS: ADMIT Hospitalist; ATTEND Hospitalist
DX: G45.9 Transient cerebral ischemic attack, unspecified (principal); I48.2 Chronic atrial fibrillation; N39.0 Urinary tract infection, site not specified; F03.90 Unspecified dementia, unspecified severity, without behavioral disturbance, psychotic disturbance, mood disturbance, and anxiety; E87.1 Hypo-osmolality and hyponatremia; I10 Essential (primary) hypertension; R74.8 Abnormal levels of other serum enzymes; E88.09 Other disorders of plasma-protein metabolism, not elsewhere classified; I25.10 Atherosclerotic heart disease of native coronary artery without angina pectoris; R73.9 Hyperglycemia, unspecified; Z86.73 Personal history of transient ischemic attack (TIA), and cerebral infarction without residual deficits; Z95.0 Presence of cardiac pacemaker; Z95.5 Presence of coronary angioplasty implant and graft; Z79.02 Long term (current) use of antithrombotics/antiplatelets; Z87.440 Personal history of urinary (tract) infections; Z88.5 Allergy status to narcotic agent
CPT/HCPCS: 70450; 71045; 80053; 80061; 81001; 82948; 83036; 84443; 84484; 85025; 85610; 85730; 87086; 93005; 93306; 93880; J0696; J1650; J7030